=== PATIENT | female | born 1955 | race Caucasian/White ===

== ENCOUNTER 2017-02-28 19:33 | Emergency (ER) | payer OTHER ==
[~2017-02-28] VITALS: Ht 172.7 cm; Wt 62.1 kg
[~2017-02-28 19:33] MED LIST changes: -ACET-1256 PO; -ALPR-411 PO; -AMT10 PO; -CLIN300C2 PO; -HYDR200T5 PO; -OMEP40CA41 PO; -PREG1CAP28 PO
[2017-02-28 19:35] VITALS: TEMP 37; Ht 172.7 cm; Wt 62.1 kg
[2017-02-28] MEDS ORDERED: ADENOSINE IV SOLN 3 MG/ML 2 ML VIAL ONE (19:49)
--- NOTE | 2017-02-28 19:52 | EMERGENCY ROOM VISIT NOTE ---
History Report prepared by Danyelle: Alexia Arriola Under the Supervision of: Dr. Ted Colunga M.D. First contact with patient: 19:41 Chief Complaint: TACHYCARDIA Stated Complaint: SVT History of Present Illness The patient is a 62 year old female who presents to the Emergency Room with complaints of persistent tachycardia starting 40 minutes ago. She drove herself to the ED. The patient was at a rally and had pain between her shoulder blades all afternoon. She reports being unable to get comfortable. She had SOB. She denies inhaling any chemicals while she was cleaning earlier today. She has a history of SVT and was last in the hospital for SVT 1 year ago. She states that adenosine usually works to stop her SVT. She is not on any medications for her SVT. She has never been cardioverted or shocked before. She denies any other heart or aorta problems. She is currently a smoker. Source of History: patient Onset: 40 minutes ago Position: other (cardiac) Quality: other (tachycardia) Timing: other (persistent) Associated Symptoms: + SOB Note: Pt reports pain between her shoulder blades. Review of Systems See HPI for pertinent positives & negatives. A total of 10 systems reviewed and were otherwise negative. Past Medical & Surgical Medical Problems: (1) Abdominal pain (2) C. difficile colitis (3) Diarrhea (4) Hematochezia (5) Overdose of analgesic (6) SVT (supraventricular tachycardia) Family History FHx: heart disease Hypertension Social History Smoking Status: Current Every Day Smoker Alcohol Use: occasionally Drug Use: none Marital Status: Housing Status: lives with family Occupation Status: employed Current/Historical Medications Scheduled Hydroxychloroquine Sulfate (Plaquenil), 400 MG PO HS Omeprazole (Prilosec), 40 MG PO DAILY Pregabalin (Lyrica), 75 MG PO HS Scheduled PRN Alprazolam (Alprazolam), 0.5 MG PO Q6H PRN for Anxiety Amitriptyline HCl (Amitriptyline HCl), 10 MG PO HS PRN for PRN Allergies Coded Allergies: Penicillins (Verified Allergy, Intermediate, HIVES (AMOXICILLIN), 02/28/17) 08/23/11. PATIENT STATES SHE CAN TAKE AUGMENTIN. DJB. Physical Exam Vital Signs Date Time Temp Pulse Resp B/P Pulse Ox O2 Delivery O2 Flow Rate FiO2 02/28/17 21:06 94 20 120/70 97 02/28/17 20:55 94 20 120/70 97 Room Air 02/28/17 20:00 99 Room Air 02/28/17 20:00 99 18 115/84 98 Room Air 02/28/17 19:45 136 02/28/17 19:44 194 02/28/17 19:35 37.0 207 20 118/84 98 Room Air Physical Exam GENERAL: Patient is very anxious appearing and in moderate distress. HEENT: No acute trauma, normocephalic atraumatic, mucous membranes moist, no nasal congestion, no scleral icterus. NECK: No stridor, no adenopathy, no meningismus, trachea is midline. LUNGS: No dyspnea. Clear to auscultation and equal bilaterally. No wheeze, no rhonchi. HEART: Tachycardic rate and regular rhythm. No murmurs, rubs, gallops appreciated. ABDOMEN: Soft, nontender, bowel sounds positive, no masses appreciated, no peritonitis. BACK: No midline tenderness, no CVA tenderness EXTREMITIES: Normal motion all extremities, no cyanosis, no edema. NEUROLOGIC: Alert and oriented, no acute motor or sensory deficits, no focal weakness, cranial nerves grossly intact. SKIN: No rash, no jaundice, no diaphoresis. Medical Decision & Procedures ER Provider Diagnostic Interpretation: X ray results are stated below per my interpretation and the radiologist's interpretation. CHEST ONE VIEW PORTABLE CLINICAL HISTORY: Chest pain. COMPARISON STUDY: Chest radiograph and chest CT December 12, 2015. FINDINGS: Lung volumes are normal. There is no pneumothorax or pleural effusion. Pulmonary vascularity is normal. Cardiac size is normal. There is no evidence of pulmonary edema. No consolidation is identified. IMPRESSION: No acute cardiopulmonary findings. Electronically signed by: Drake Justin M.D. 02/28/2017 8:26 PM Dictated Date/Time: 02/28/2017 8:25 PM Laboratory Results 02/28/17 19:45 Red Blood Count 4.80, Mean Corpuscular Volume 94.2, Mean Corpuscular Hemoglobin 32.7, Mean Corpuscular Hemoglobin Concent 34.7, Mean Platelet Volume 8.9, Neutrophils (%) (Auto) 43.1, Lymphocytes (%) (Auto) 49.5, Monocytes (%) (Auto) 5.7, Eosinophils (%) (Auto) 1.1, Basophils (%) (Auto) 0.3, Neutrophils # (Auto) 5.88, Lymphocytes # (Auto) 6.74, Monocytes # (Auto) 0.77, Eosinophils # (Auto) 0.15, Basophils # (Auto) 0.04 02/28/17 19:45 Test 02/28/17 19:45 White Blood Count 13.62 K/uL (4.8-10.8) Red Blood Count 4.80 M/uL (4.2-5.4) Hemoglobin 15.7 g/dL (12.0-16.0) Hematocrit 45.2 % (37-47) Mean Corpuscular Volume 94.2 fL (80-100) Mean Corpuscular Hemoglobin 32.7 pg (25-34) Mean Corpuscular Hemoglobin Concent 34.7 g/dl (32-36) Platelet Count 319 K/uL (130-400) Mean Platelet Volume 8.9 fL (7.4-10.4) Neutrophils (%) (Auto) 43.1 % Lymphocytes (%) (Auto) 49.5 % Monocytes (%) (Auto) 5.7 % Eosinophils (%) (Auto) 1.1 % Basophils (%) (Auto) 0.3 % Neutrophils # (Auto) 5.88 K/uL (1.4-6.5) Lymphocytes # (Auto) 6.74 K/uL (1.2-3.4) Monocytes # (Auto) 0.77 K/uL (0.11-0.59) Eosinophils # (Auto) 0.15 K/uL (0-0.5) Basophils # (Auto) 0.04 K/uL (0-0.2) RDW Standard Deviation 44.4 fL (36.4-46.3) RDW Coefficient of Variation 12.8 % (11.5-14.5) Immature Granulocyte % (Auto) 0.3 % Immature Granulocyte # (Auto) 0.04 K/uL (0.00-0.02) Smudge Cells PRESENT Blood Smear Review Anion Gap 10.0 mmol/L (3-11) Est Creatinine Clear Calc Drug Dose 63.8 ml/min Estimated GFR () 78.4 Estimated GFR (Non- 67.7 BUN/Creatinine Ratio 19.8 (10-20) Calcium Level 9.3 mg/dl (8.5-10.1) Magnesium Level 2.1 mg/dl (1.8-2.4) Troponin I < 0.015 ng/ml (0-0.045) Thyroid Stimulating Hormone (TSH) 0.525 uIu/ml (0.300-4.500) Laboratory results as reviewed by me. Medications Administered Medications (Trade) Dose Ordered Sig/Milo Route Start Time Stop Time Status Last Admin Dose Admin Adenosine (Adenosine IV) 18 mg STK-MED ONCE .ROUTE 02/28/17 19:49 02/28/17 19:50 DC 02/28/17 19:49 6 MG Lorazepam (Ativan Tab) 0.5 mg STK-MED ONCE .ROUTE 02/28/17 21:05 02/28/17 21:06 DC 02/28/17 21:03 0.5 MG ECG Indication: tachycardia Rate (beats per minute): 189 Rhythm: SVT Findings: ST depression (consistent with rate), no ectopy, other (QTC 411) ED Course 1940: The patient was evaluated in room A3. A complete history and physical exam was performed. 1948: Adenosine 6 mg IV. 2017: I reevaluated the patient. She feels much better and would like to go home. I discussed results and discharge instructions. I advised she follow up with her PCP to see if she should be placed on medications. She verbalized understanding and agreement. The patient is ready for discharge. Medical Decision Differential: NSR, SVT, PACs, PVCs, Cardiac Dysrhythmia, Endocrine Dysfunction, Eletrolyte/Metabolic Abnormality, Pulmonary Embolism, Infectious, GI, amonst other pathologies entertained. 62 yr old female arrives with complaint of palpitations. Ongoing for some time though acutely worse resulting in coming to ED. HR 190s-200s and EKG consistent with SVT which she has had several times before. Previous on meds for this though not taking anything currently. Patient vastly improved with adenosine. Admits this made her quite nervous and thus sent home with dose ativan (patient drove). Labs oK, CXR clear and patient feeling well. Denies drug/etoh use. Denies other concerns. Aware RTED at any time if worsening or other concerns. Impression Primary Impression: SVT (supraventricular tachycardia) Scribe Attestation The scribe's documentation has been prepared under my direction and personally reviewed by me in its entirety. I confirm that the note above accurately reflects all work, treatment, procedures, and medical decision making performed by me. Departure Information Dispostion Home / Self-Care Referrals Escobar Viera Jr,D.O. (PCP) Patient Instructions My [facility], Understanding Supraventricular Tachycardia SVT
[2017-02-28 20:06] LABS: HEMATOCRIT 45.2 % (37-47); MEAN CELL VOLUME 94.2 fL (80-100); MEAN CORPUSCULAR HEMOGLOBIN 32.7 pg (25-34); MEAN CORPUSCULAR HGB CONC 34.7 g/dl (32-36); MEAN PLATELET VOLUME 8.9 fL (7.4-10.4); PLATELET COUNT 319 K/uL (130-400); WHITE BLOOD COUNT 13.62 K/uL (4.8-10.8)
[2017-02-28 20:24] LABS: BLOOD UREA NITROGEN 18 mg/dl (7-18); BUN/CREATININE RATIO 19.8 (10-20); CALCIUM 9.3 mg/dl (8.5-10.1); CARBON DIOXIDE 23 mmol/L (21-32); CHLORIDE 110 mmol/L (98-107); CREATININE 0.92 mg/dl (0.60-1.20); GLUCOSE 134 mg/dl (70-99); MAGNESIUM 2.1 mg/dl (1.8-2.4); POTASSIUM 3.7 mmol/L (3.5-5.1); SODIUM 143 mmol/L (136-145)
--- NOTE | 2017-02-28 20:28 | DIAGNOSTIC IMAGING REPORT ---
CHEST ONE VIEW PORTABLE CLINICAL HISTORY: Chest pain. COMPARISON STUDY: Chest radiograph and chest CT December 12, 2015. FINDINGS: Lung volumes are normal. There is no pneumothorax or pleural effusion. Pulmonary vascularity is normal. Cardiac size is normal. There is no evidence of pulmonary edema. No consolidation is identified. IMPRESSION: No acute cardiopulmonary findings. Electronically signed by: Drake Justin M.D. 02/28/2017 8:26 PM Dictated Date/Time: 02/28/2017 8:25 PM
[2017-02-28 20:34] LABS: THYROID STIMULATING HORMONE 0.525 uIu/ml (0.300-4.500)
[2017-02-28] MEDS ORDERED: LORAZEPAM 0.5 MG TAB ONE (21:05)
[2017-02-28 21:06] VITALS: BP 120/70; PULSE 94; O2SAT 97
[2017-02-28] MEDS ORDERED: EMPTY 8 DRAM VIAL ONE (21:06)
[2017-02-28 21:46] LABS: BASO % 0.3 %; BASO ABS # 0.04 K/uL (0-0.2); COMPLETE YES; EOS % 1.1 %; IG% 0.3 %; LYMPH % 49.5 %; LYMPH ABS # 6.74 K/uL (1.2-3.4); MONO % 5.7 %; NEUT % 43.1 %
[2017-02-28 22:54] LABS: SMUDGE CELLS PRESENT
[2017-04-04] MEDS ORDERED: HYDR200T5 PO (20:51)
[2017-04-04] MEDS ORDERED: ALPR-411 PO (20:55)
[2017-04-04] MEDS ORDERED: OMEP40CA41 PO (20:55)
[2017-04-04] MEDS ORDERED: AMT10 PO (20:55)
[2017-04-04] MEDS ORDERED: PREG1CAP28 PO (20:55)
== END 2017-02-28 21:07 | disposition home or self-care (01) ==
LOC: C.EDB 19:34 → C.EDA 21:07
DX: I47.1 Supraventricular tachycardia (principal); Z82.49 Family history of ischemic heart disease and other diseases of the circulatory system; F17.210 Nicotine dependence, cigarettes, uncomplicated; Z79.899 Other long term (current) drug therapy

== ENCOUNTER → 2017-02-28 | Outpatient (CLI) | payer OTHER ==
[~2017-02-28] MED LIST: ACET-1256 PO; ALPR-411 PO; AMT10 PO; CLIN300C2 PO; HYDR200T5 PO; IBUP-1050 PO; METH10TA4 PO; OMEP40CA41 PO; PREG1CAP28 PO; RANI150T3 PO
== END | disposition home or self-care (01) ==
LOC: C.LABSPEC 20:03
DX: D72.820 Lymphocytosis (symptomatic) (principal)

== ENCOUNTER → 2017-03-02 | Outpatient (CLI) | payer OTHER ==
[~2017-03-02] MED LIST changes: +ACET-1256 PO; +ALPR-411 PO; +AMT10 PO; +CLIN300C2 PO; +HYDR200T5 PO; -METH10TA4 PO; +OMEP40CA41 PO; +PREG1CAP28 PO; -RANI150T3 PO
[2017-03-02 14:21] LABS: FERRITIN 552.7 ng/ml (8.0-388.0); MAGNESIUM 2.4 mg/dl (1.8-2.4)
== END | disposition home or self-care (01) ==
LOC: C.LAB 11:55
DX: R53.83 Other fatigue (principal)

== ENCOUNTER 2017-04-04 21:05 | Emergency (ER) | payer OTHER ==
[~2017-04-04] VITALS: Ht 172.7 cm; Wt 60.7 kg
[~2017-04-04 21:05] MED LIST changes: -ACET-1256 PO; -CLIN300C2 PO; -IBUP-1050 PO
[2017-04-04 21:07] VITALS: TEMP 36.7; Ht 172.7 cm; Wt 60.7 kg
[2017-04-04] MEDS ORDERED: CLIN300C2 PO (21:23)
[2017-04-04] MEDS ORDERED: CLINDAMYCIN 150MG HOME PACK PO ONE (21:30)
[2017-04-04] MEDS ORDERED: OXYCODONE IR HOME PACK PO ONE (21:30)
[2017-04-04 21:34] VITALS: BP 113/71; PULSE 79; O2SAT 96
[2017-04-04] MEDS ORDERED: IBUP-1050 PO (21:35)
[2017-04-04] MEDS ORDERED: ACET-1256 PO (21:35)
--- NOTE | 2017-04-05 00:02 | EMERGENCY ROOM VISIT NOTE ---
ED Visit Note First contact with patient: 21:11 CHIEF COMPLAINT: Toothache HISTORY OF PRESENT ILLNESS: This 62-year-old female patient presented to the emergency department with a progressive toothache for past 2-3 days The patient believes it is coming from a right lower molar. The pain is now steady and severe and radiates to the face. The patient does not have a dentist appointment set up because her symptoms started over the weekend. They rate their pain a 8/10 and the ibuprofen and Tylenol they have been taking has not relieved the pain. Denies facial swelling or fever. The patient denies any discharge from the mouth. REVIEW OF SYSTEMS: A 6 system review of systems was completed with positives and pertinent negatives listed in the HPI. ALLERGIES: Penicillin MEDICATIONS: See EMR PMH: See EMR SOCIAL HISTORY: Lives locally PHYSICAL EXAM: Vitals are noted on the nurse's note and reviewed by myself. Vital signs stable. GENERAL: White female, in no acute distress, nondiaphoretic, well-developed well -nourished. Mouth: The right second molar lower tooth is very carious and the gum is swollen and tender around it, without any discharge or signs of an abscess. The remainder of the pharynx and tonsils are without erythema, edema, or exudate. The airway is patent. There is no facial swelling, cervical or submandibular lymphadenopathy. The patient appears uncomfortable and in pain. The patient has overall poor dental hygiene. EARS: External auditory canals clear, tympanic membranes pearly guallpa without erythema or effusion bilaterally. HEART: Regular rate and rhythm without murmur gallop or rub LUNG: Clear to auscultation bilateral ED COURSE: Physical exam and history were performed. Nursing notes and EMR were reviewed. The patient appears to have dental pain for the past few days. She does not have obvious abscess or impending airway compromise. She will be started on clindamycin. The patient will be given a home pack of oxycodone. She is to contact a dentist as soon as possible for definitive care. She was otherwise invited back to the ER with any new, worsening, or concerning symptoms. Problem List Medical Problems: (1) Abdominal pain Status: Resolved (2) C. difficile colitis Status: Resolved (3) Diarrhea Status: Resolved (4) Hematochezia Status: Resolved (5) Overdose of analgesic Status: Resolved (6) SVT (supraventricular tachycardia) Status: Resolved Current/Historical Medications Scheduled Clindamycin Hcl (Cleocin), 300 MG PO QID Hydroxychloroquine Sulfate (Plaquenil), 400 MG PO HS Omeprazole (Prilosec), 40 MG PO DAILY Pregabalin (Lyrica), 75 MG PO HS Scheduled PRN Acetaminophen (Tylenol), 1,000 MG PO TID PRN for Pain Alprazolam (Alprazolam), 0.5 MG PO Q6H PRN for Anxiety Amitriptyline HCl (Amitriptyline HCl), 10 MG PO HS PRN for PRN Ibuprofen (Advil), 800 MG PO TID PRN for Pain Allergies Coded Allergies: Penicillins (Verified Allergy, Intermediate, HIVES (AMOXICILLIN), 02/28/17) 08/23/11. PATIENT STATES SHE CAN TAKE AUGMENTIN. DJB. Vital Signs Date Time Temp Pulse Resp B/P Pulse Ox O2 Delivery O2 Flow Rate FiO2 04/04/17 21:34 79 16 113/71 96 04/04/17 21:07 36.7 79 16 113/71 96 Room Air Medications Administered Medications (Trade) Dose Ordered Sig/Milo Route Start Time Stop Time Status Last Admin Dose Admin Clindamycin HCl (Cleocin 150MG Home Pack) 1 homepack UD ONCE PO 04/04/17 21:30 04/04/17 21:31 DC 04/04/17 21:33 1 HOMEPACK Oxycodone HCl (Roxicodone Immediate Rel 5MG Home Pack) 1 homepack UD ONCE PO 04/04/17 21:30 04/04/17 21:31 DC 04/04/17 21:33 1 HOMEPACK Departure Information Impression Primary Impression: Pain, dental Dispostion Home / Self-Care Condition GOOD Prescriptions Clindamycin Hcl (CLEOCIN) 300 Mg Cap 300 MG PO QID for 7 Days, #28 CAP Prov: Rocky Lott PA-C 04/04/17 Forms HOME CARE DOCUMENTATION FORM, IMPORTANT VISIT INFORMATION Patient Instructions My [facility] Additional Instructions You were seen and evaluated today on an emergency basis only. This is not a substitute for, or an effort to provide, complete comprehensive medical care. It is not possible to recognize and treat all injuries or illnesses in a single emergency department visit. For this reason it is recommended that you followup with a dentist as soon as possible for definitive care. For baseline pain relief you may alternate ibuprofen and acetaminophen every 4 hours for pain control. Take 600 mg ibuprofen (Advil) and then 4 hours later take 1000 mg acetaminophen (Tylenol). Do not take more than 3000 mg acetaminophen in a single day. Oxycodone (OxyIR) 5mg (homepack): Take ONE pill every SIX hours for breakthrough pain. Avoid alcohol, operating machinery or dangerous equipment, working on ladders or roofs, DRIVING, or situations where being under the influence may be dangerous. It is recommended to use an [id number] stool softener such as Colace, 100mg twice daily while taking this medication to avoid constipation. Clindamycin 4 times a day for 7 days. Consider eating yogurt or taking a probiotic to help prevent C. difficile infection. You are welcome to return to the emergency department anytime with new, worsening, or concerning symptoms.
== END 2017-04-04 21:34 | disposition home or self-care (01) ==
LOC: C.EDB 21:06 → C.EDD 21:34
DX: K08.89 Other specified disorders of teeth and supporting structures (principal); Z79.899 Other long term (current) drug therapy

== ENCOUNTER → 2018-02-20 | Outpatient (CLI) | payer OTHER ==
[~2018-02-20] MED LIST changes: +ACET-1256 PO; +IBUP-1050 PO
[2018-02-20 14:37] LABS: BASO % 0.2 %; BASO ABS # 0.02 K/uL (0-0.2); EOS % 1.3 %; EOS ABS # 0.11 K/uL (0-0.5); HEMATOCRIT 39.1 % (37-47); HEMOGLOBIN 13.5 g/dL (12.0-16.0); IG# 0.02 K/uL (0.00-0.02); LYMPH % 45.7 %; LYMPH ABS # 3.89 K/uL (1.2-3.4); MEAN CELL VOLUME 93.3 fL (80-100); MEAN CORPUSCULAR HEMOGLOBIN 32.2 pg (25-34); MEAN CORPUSCULAR HGB CONC 34.5 g/dl (32-36); MEAN PLATELET VOLUME 8.9 fL (7.4-10.4); MONO % 6.1 %; MONO ABS # 0.52 K/uL (0.11-0.59); NEUT % 46.5 %; NEUT ABS # 3.95 K/uL (1.4-6.5); PLATELET COUNT 247 K/uL (130-400); RED CELL DISTRIBUTION WIDTH SD 44.8 fL (36.4-46.3); WHITE BLOOD COUNT 8.51 K/uL (4.8-10.8)
[2018-02-20 15:03] LABS: ALT/SGPT 18 U/L (12-78); AST/SGOT 21 U/L (15-37); BLOOD UREA NITROGEN 14 mg/dl (7-18); CALCIUM 9.1 mg/dl (8.5-10.1); CARBON DIOXIDE 31 mmol/L (21-32); CREATININE 0.77 mg/dl (0.60-1.20); GLUCOSE 77 mg/dl (70-99); POTASSIUM 3.6 mmol/L (3.5-5.1); SODIUM 137 mmol/L (136-145)
[2018-02-20 15:06] LABS: ALKALINE PHOSPHATASE 64 U/L (45-117); TOTAL PROTEIN 8.1 gm/dl (6.4-8.2)
[2018-02-24 13:38] LABS: HEPATITIS C RNA TMA QUAL Not detected
== END | disposition home or self-care (01) ==
LOC: C.LAB 13:16
DX: M19.90 Unspecified osteoarthritis, unspecified site (principal); B19.20 Unspecified viral hepatitis C without hepatic coma

== ENCOUNTER 2021-06-28 14:12 | Inpatient (IN) ==
[2021-06-28] MEDS ORDERED: SODIUM CHLORIDE 0.9% 1000ML 2,000 ML IV ONE (14:33)
--- NOTE | 2021-06-28 14:48 | Emergency Department Note ---
Impression & Plan Altered mental status, Pneumonitis, Hypoxia, Hypercarbia ED Provider Note NAME: ANGÉLICA NEELY AGE: 66 SEX: F : 1955 ARRIVES VIA: Walk-In INFORMANT: Patient ED PROVIDER(S): Jeff Goodman DO CHIEF COMPLAINT: Confusion HPI: Patient is a 66-year-old female who presents ER brought in by daughter for confusion. Daughter notes that the last time she saw her was about 6 in the morning. Both of them eventually went back to bed throughout the day and she woke the daughter up just prior to coming in and she was confused shaking and not making sense. Patient notes that she does have some lower abdominal pain. Denies any change in vision. Notes that she feels very tired. History is fairly limited as she keeps moaning. Denies any dysuria, urgency, or frequency. No chest pain or shortness of breath. No other exacerbating or remitting factors. She denies any drugs or alcohol. ROS: History is limited secondary to mentation PAST MEDICAL HISTORY:See Below PAST SURGICAL HISTORY:See Below FAMILY HISTORY:See Below SOCIAL HISTORY:See Below HOME MEDICATIONS:See Below ALLERGIES:See Below VITALS:See Below PHYSICAL EXAMINATION: GENERAL: Sitting up in bed, alert, but falls asleep very quickly, disheveled intermittently moaning in crying EYE EXAM: normal conjunctiva. PERRL and EOM's intact. OROPHARYNX: no exudate, no erythema, lips, buccal mucosa, and tongue normal and mucous membranes are moist NECK: supple, no nuchal rigidity, no adenopathy, non-tender LUNGS: Clear to auscultation. Normal chest wall mechanics HEART: no murmurs, S1 normal and S2 normal ABDOMEN: abdomen soft, non-tender, normo-active bowel sounds, no masses, no rebound or guarding. UPPER EXTREMITIES: upper extremities are grossly normal. LOWER EXTREMITIES: No pitting edema. NEURO EXAM: Awake and alert but falls asleep extremely quickly. Oriented to person place but not year., cranial nerves II-XII intact, normal speech when she wakes up, no weakness of arms, no weakness of legs. No drift. Gross sensation intact. Unable to perform [id number] as she falls asleep too quickly MEDICAL DECISION MAKING: Patient is a 66-year-old female who presents the ER who awakens to painful stimuli and verbal stimuli and falls asleep very quickly. Intermittently slurring words appears to be visibly intoxicated. IV was established blood work is obtained. Labs show no significant leukocytosis or anemia. VBG with a pH of 7.3 and a CO2 of 63. BMP along with LFTs bilirubin was unremarkable. Lipase was normal. UA was contaminated with greater than 30 epithelial cells. Tox positive for benzodiazepines. Alcohol was negative. CT of the head was negative. CT of the abdomen pelvis shows bilateral infiltrates in the lower lungs. She was given IV Rocephin and azithromycin. She is given IV fluids. Lactic acid was elevated. She was updated bedside. Her mentation did improve and she was able to walk in the room but is still off. She did become slightly hypoxic at 88%. She was placed on nasal cannula. She was fairly agitated and pulling the nasal cannula off. Will not tolerate BiPAP although considered with a pH of 7.3 and a CO2 of 62. As her mentation has improved currently I do favor that these will improve as well. Last known well is somewhere around 6 in the morning. Patient again has no focal deficit. Nothing that makes this consistent with a stroke. She is not a TPA candidate at this time. Will defer to the hospitalist for further evaluation. Triage Nursing notes reviewed. Limited review of prior medical records performed Vital Signs: reviewed and remarkable for HTN and tachy Differential diagnosis: Differential diagnoses includes but is not limited to toxic, metabolic, infectious, traumatic, cardiac, neurologic, hematologic, psychiatric and inflammatory etiologies. ER treatment provided: See below Diagnostics interpreted by me: ECG: Sinus rhythm rate 126 Normal axis Poor baseline T wave inversion in the inferior leads and nonspecific ST wave changes QTC 428 Cardiac Monitoring: An order was placed for continuous cardiac monitoring. The monitor shows a rate of 122 with sinus rhythm. Laboratory studies: As stated above and show below. Imaging studies: CT of the head was negative Portable AP upright 1 view chest shows bilateral infiltrates CT abdomen pelvis shows infiltrates in bilateral lower lobes Consultation(s): Discussed with David Montgomery for further evaluation Procedures: none Critical Care: I have personally spent 32 minutes of critical care time in the direct management of this patient. This includes bedside care, interpretation of diagnostic studies, and testing, discussion with consultants, patient, and family members, and other required patient management activities. This 32 minutes is in excess of all separately billable procedures. Past Med/Surg History Medical History (Updated 06/28/21 @ 17:59 by GLADIS Calvo) Anxiety and depression Degenerative disc disease Hx of supraventricular tachycardia BY DR[facility] BANERJEE AT [facility] Migraine Osteoarthritis Spinal stenosis Surgical History Fusion of spine LUMBAR H/O cardiac radiofrequency ablation H/O vitrectomy LEFT H/O: hysterectomy 2009 History of bilateral tubal ligation History of colonoscopy History of esophagogastroduodenoscopy (EGD) History of tooth extraction Family History Grandfather (Paternal) Cancer Uncle Cancer Grandfather (Paternal) Colorectal cancer Other Hypertension No significant family history Social History Smoking Status: Former smoker Tobacco Type: Cigarettes Cigarettes Per Day: 10; Second Hand Exposure: No; Hx Alcohol Use: No Hx Substance Use: No Preferred Language: Irish [employer]er Required: No Beliefs That Will Affect Care: None marital status: / Current Living Situation: Family current occupational status: retired and disabled Feels Safe at Home: Yes Assistive Devices: Denture - Upper, Denture - Lower and Glasses Allergies Allergies Allergy/AdvReac Type Severity Reaction Status Date / Time Penicillins Allergy Intermediate Hives Verified 06/28/21 15:39 Home Meds Home Medications Medication Instructions Recorded Confirmed alprazolam 0.5 mg tablet (Xanax) 0.5 mg PO TID PRN 11/14/19 06/28/21 acetaminophen 500 mg tablet 1,000 mg PO Q6H PRN 04/21/20 06/28/21 (Tylenol Extra Strength) ibuprofen 200 mg tablet 400 - 600 mg PO Q8H PRN 04/21/20 06/28/21 aluminum-mag hydroxide-simethicone 0 ml PO QID PRN 06/28/21 06/28/21 200 mg-200 mg-20 mg/5 mL oral susp bismuth subsalicylate 262 mg/15 mL 0 mg PO QID PRN 06/28/21 06/28/21 oral suspension (Pepto-Bismol) Results & Data (ED) Vital Signs Vital Signs - 24 hr 06/28/21 14:16 06/28/21 14:26 06/28/21 14:30 Pulse Rate 132 H 126 H Pulse Rate from SpO2 Sensor 132 H Pulse Rhythm Regular Respiratory Rate 16 24 16 Respiratory Effort / Characteristics Non-Labored Respiratory Depth Normal Blood Pressure 158/78 H 126/81 Blood Pressure Mean 104 96 Pulse Oximetry 93 89 L 93 Oxygen Delivery Method Room Air Room Air Room Air Oxygen Flow Rate Sepsis Recent Fever Within 48 Hours No Sepsis New/Unexplained Change in Mental Status No Sepsis Action Taken by Nursing No Action Required 06/28/21 15:00 06/28/21 15:30 06/28/21 16:00 Pulse Rate 121 H 126 H Pulse Rate from SpO2 Sensor 126 H 124 H Pulse Rhythm Respiratory Rate 24 26 H Respiratory Effort / Characteristics Respiratory Depth Blood Pressure 147/81 H 148/84 H 159/96 H Blood Pressure Mean 103 105 117 Pulse Oximetry 94 98 91 Oxygen Delivery Method Nasal Cannula Oxygen Flow Rate 2 Sepsis Recent Fever Within 48 Hours Sepsis New/Unexplained Change in Mental Status Sepsis Action Taken by Nursing Laboratory Data Result diagrams: 06/28/21 14:45 06/28/21 14:45 Lab Results 06/28/21 06/28/21 06/28/21 Range/Units 14:45 14:45 14:45 WBC 9.42 (4.8-10.8) K/uL RBC 4.59 (4.2-5.4) M/uL Hgb 14.3 (12.0-16.0) g/dL POC Hgb (12.0-16.0) g/dl Hct 42.4 (37-47) % POC Hct (37-47) % MCV 92.4 (80-100) fL MCH 31.2 (25-34) pg MCHC 33.7 (32-36) g/dL RDW Std Deviation 43.4 (36.4-46.3) fL RDW Coeff of Hernan 12.9 (11.5-14.5) % Plt Count 226 (130-400) K/uL MPV 8.5 (7.4-10.4) fL Immature Gran % (Auto) 0.3 % Neut % (Auto) 73.2 % Lymph % (Auto) 22.1 % [place] % (Auto) 3.5 % Eos % (Auto) 0.8 % Baso % (Auto) 0.1 % Neut # (Auto) 6.89 H (1.4-6.5) K/uL Lymph # (Auto) 2.08 (1.2-3.4) K/uL [place] # (Auto) 0.33 (0.11-0.59) K/uL Eos # (Auto) 0.08 (0-0.5) K/uL Baso # (Auto) 0.01 (0-0.2) K/uL Immature Gran # (Auto) 0.03 H (0.00-0.02) K/uL VBG pH (7.36-7.41) VBG pCO2 (38-50) mmHg VBG pO2 mmHg VBG HCO3 mmol/L VBG O2 Saturation % VBG Base Excess mEq/L Barometric Pressure mm/Hg POC Sodium (135-144) mmol/L Sodium 140 (136-145) mmol/L POC Potassium (3.3-5.0) mmol/L Potassium 4.0 (3.5-5.1) mmol/L POC Chloride (101-112) mmol/L Chloride 104 (98-107) mmol/L Carbon Dioxide 28 (21-32) mmol/L POC Total CO2 (24-31) mmol/L Anion Gap 8.0 (3-11) POC Anion Gap (16-25) mmol/L POC BUN (7-18) mg/dl BUN 14 (7-18) mg/dl Creatinine 0.83 (0.6-1.2) mg/dl POC Creatinine (0.6-1.3) mg/dl Est Cr Clr Drug Dosing Not Reportable Est GFR ( Amer) 86.4 ml/min Est GFR (Non-Af Amer) 74.5 ml/min BUN/Creatinine Ratio 17.1 (10-20) Glucose 118 H (70-99) mg/dl POC Glucose (other) (70-99) mg/dl Lactate (0.4-2.0) mmol/L Calcium 9.1 (8.5-10.1) mg/dl POC Ioniz Calcium Tara (1.12-1.32) mmol/l Total Bilirubin 0.4 (0.2-1) mg/dl AST 58 H (15-37) U/L ALT 61 (12-78) U/L Alkaline Phosphatase 72 (45-117) U/L C-Reactive Protein (0-0.29) mg/dl Total Protein 8.1 (6.4-8.2) gm/dl Albumin 4.0 (3.4-5.0) gm/dl Globulin 4.1 H (2.5-4.0) gm/dl Albumin/Globulin Ratio 1.0 (0.9-2) Lipase 313 (73-393) U/L Specimen Hemolysis Urine Color Urine Appearance (Clear) Urine pH (4.5-7.5) Ur Specific [place] (1.000-1.030) Urine Protein (Negative) Urine Glucose (UA) (Negative) Urine Ketones (Negative) Urine Blood (Negative) Urine Nitrite (Negative) Urine Bilirubin (Negative) Urine Urobilinogen (Negative) Ur Leukocyte Esterase (Negative) Urine WBC (Auto) (0-5) /hpf Urine RBC (Auto) (0-4) /hpf U Hyaline Cast (Auto) (0-5) /lpf U Epithel Cells (Auto) (0-5) /lpf Urine Bacteria (Auto) (Negative) Urine Opiates Screen (Neg) Ur Methadone, Qual (Neg) Urine Barbiturates (Neg) Ur Phencyclidine (PCP) (Neg) U Amphetamin/Meth Scrn (Neg) MDMA (Ecstasy) Screen (Neg) U Benzodiazepines Scrn (Neg) Ur Cocaine Metabolite (Neg) U Marijuana (THC) Screen (Neg) Ethyl Alcohol mg/dL < 3.0 (0-3) mg/dl 06/28/21 06/28/21 06/28/21 Range/Units 14:45 14:45 14:45 WBC (4.8-10.8) K/uL RBC (4.2-5.4) M/uL Hgb (12.0-16.0) g/dL POC Hgb (12.0-16.0) g/dl Hct (37-47) % POC Hct (37-47) % MCV (80-100) fL MCH (25-34) pg MCHC (32-36) g/dL RDW Std Deviation (36.4-46.3) fL RDW Coeff of Hernan (11.5-14.5) % Plt Count (130-400) K/uL MPV (7.4-10.4) fL Immature Gran % (Auto) % Neut % (Auto) % Lymph % (Auto) % [place] % (Auto) % Eos % (Auto) % Baso % (Auto) % Neut # (Auto) (1.4-6.5) K/uL Lymph # (Auto) (1.2-3.4) K/uL [place] # (Auto) (0.11-0.59) K/uL Eos # (Auto) (0-0.5) K/uL Baso # (Auto) (0-0.2) K/uL Immature Gran # (Auto) (0.00-0.02) K/uL VBG pH 7.30 L (7.36-7.41) VBG pCO2 63 H (38-50) mmHg VBG pO2 20 mmHg VBG HCO3 31 mmol/L VBG O2 Saturation < 60.0 % VBG Base Excess 2.4 mEq/L Barometric Pressure 729.2 mm/Hg POC Sodium (135-144) mmol/L Sodium (136-145) mmol/L POC Potassium (3.3-5.0) mmol/L Potassium (3.5-5.1) mmol/L POC Chloride (101-112) mmol/L Chloride (98-107) mmol/L Carbon Dioxide (21-32) mmol/L POC Total CO2 (24-31) mmol/L Anion Gap (3-11) POC Anion Gap (16-25) mmol/L POC BUN (7-18) mg/dl BUN (7-18) mg/dl Creatinine (0.6-1.2) mg/dl POC Creatinine (0.6-1.3) mg/dl Est Cr Clr Drug Dosing Est GFR ( Amer) ml/min Est GFR (Non-Af Amer) ml/min BUN/Creatinine Ratio (10-20) Glucose (70-99) mg/dl POC Glucose (other) (70-99) mg/dl Lactate 2.1 H* (0.4-2.0) mmol/L Calcium (8.5-10.1) mg/dl POC Ioniz Calcium Tara (1.12-1.32) mmol/l Total Bilirubin (0.2-1) mg/dl AST (15-37) U/L ALT (12-78) U/L Alkaline Phosphatase (45-117) U/L C-Reactive Protein 0.42 H (0-0.29) mg/dl Total Protein (6.4-8.2) gm/dl Albumin (3.4-5.0) gm/dl Globulin (2.5-4.0) gm/dl Albumin/Globulin Ratio (0.9-2) Lipase (73-393) U/L Specimen Hemolysis Urine Color Urine Appearance (Clear) Urine pH (4.5-7.5) Ur Specific [place] (1.000-1.030) Urine Protein (Negative) Urine Glucose (UA) (Negative) Urine Ketones (Negative) Urine Blood (Negative) Urine Nitrite (Negative) Urine Bilirubin (Negative) Urine Urobilinogen (Negative) Ur Leukocyte Esterase (Negative) Urine WBC (Auto) (0-5) /hpf Urine RBC (Auto) (0-4) /hpf U Hyaline Cast (Auto) (0-5) /lpf U Epithel Cells (Auto) (0-5) /lpf Urine Bacteria (Auto) (Negative) Urine Opiates Screen (Neg) Ur Methadone, Qual (Neg) Urine Barbiturates (Neg) Ur Phencyclidine (PCP) (Neg) U Amphetamin/Meth Scrn (Neg) MDMA (Ecstasy) Screen (Neg) U Benzodiazepines Scrn (Neg) Ur Cocaine Metabolite (Neg) U Marijuana (THC) Screen (Neg) Ethyl Alcohol mg/dL (0-3) mg/dl 06/28/21 06/28/21 06/28/21 Range/Units 14:47 16:03 16:03 WBC (4.8-10.8) K/uL RBC (4.2-5.4) M/uL Hgb (12.0-16.0) g/dL POC Hgb 15.0 (12.0-16.0) g/dl Hct (37-47) % POC Hct 44 (37-47) % MCV (80-100) fL MCH (25-34) pg MCHC (32-36) g/dL RDW Std Deviation (36.4-46.3) fL RDW Coeff of Hernan (11.5-14.5) % Plt Count (130-400) K/uL MPV (7.4-10.4) fL Immature Gran % (Auto) % Neut % (Auto) % Lymph % (Auto) % [place] % (Auto) % Eos % (Auto) % Baso % (Auto) % Neut # (Auto) (1.4-6.5) K/uL Lymph # (Auto) (1.2-3.4) K/uL [place] # (Auto) (0.11-0.59) K/uL Eos # (Auto) (0-0.5) K/uL Baso # (Auto) (0-0.2) K/uL Immature Gran # (Auto) (0.00-0.02) K/uL VBG pH (7.36-7.41) VBG pCO2 (38-50) mmHg VBG pO2 mmHg VBG HCO3 mmol/L VBG O2 Saturation % VBG Base Excess mEq/L Barometric Pressure mm/Hg POC Sodium 141 (135-144) mmol/L Sodium (136-145) mmol/L POC Potassium 3.9 (3.3-5.0) mmol/L Potassium (3.5-5.1) mmol/L POC Chloride 101 (101-112) mmol/L Chloride (98-107) mmol/L Carbon Dioxide (21-32) mmol/L POC Total CO2 25 (24-31) mmol/L Anion Gap (3-11) POC Anion Gap 20.0 (16-25) mmol/L POC BUN 16 (7-18) mg/dl BUN (7-18) mg/dl Creatinine (0.6-1.2) mg/dl POC Creatinine 0.7 (0.6-1.3) mg/dl Est Cr Clr Drug Dosing Est GFR ( Amer) ml/min Est GFR (Non-Af Amer) ml/min BUN/Creatinine Ratio (10-20) Glucose (70-99) mg/dl POC Glucose (other) 112 H (70-99) mg/dl Lactate (0.4-2.0) mmol/L Calcium (8.5-10.1) mg/dl POC Ioniz Calcium Tara 1.13 (1.12-1.32) mmol/l Total Bilirubin (0.2-1) mg/dl AST (15-37) U/L ALT (12-78) U/L Alkaline Phosphatase (45-117) U/L C-Reactive Protein (0-0.29) mg/dl Total Protein (6.4-8.2) gm/dl Albumin (3.4-5.0) gm/dl Globulin (2.5-4.0) gm/dl Albumin/Globulin Ratio (0.9-2) Lipase (73-393) U/L Specimen Hemolysis Urine Color Yellow Urine Appearance Clear (Clear) Urine pH 5.0 (4.5-7.5) Ur Specific [place] 1.033 H (1.000-1.030) Urine Protein Negative (Negative) Urine Glucose (UA) Negative (Negative) Urine Ketones Negative (Negative) Urine Blood Negative (Negative) Urine Nitrite Negative (Negative) Urine Bilirubin Negative (Negative) Urine Urobilinogen Negative (Negative) Ur Leukocyte Esterase 2+ H (Negative) Urine WBC (Auto) 10-30 H (0-5) /hpf Urine RBC (Auto) 0-4 (0-4) /hpf U Hyaline Cast (Auto) 1-5 (0-5) /lpf U Epithel Cells (Auto) >30 H (0-5) /lpf Urine Bacteria (Auto) Negative (Negative) Urine Opiates Screen Neg (Neg) Ur Methadone, Qual Neg (Neg) Urine Barbiturates Neg (Neg) Ur Phencyclidine (PCP) Neg (Neg) U Amphetamin/Meth Scrn Neg (Neg) MDMA (Ecstasy) Screen Neg (Neg) U Benzodiazepines Scrn Pos H (Neg) Ur Cocaine Metabolite Neg (Neg) U Marijuana (THC) Screen Neg (Neg) Ethyl Alcohol mg/dL (0-3) mg/dl 06/28/21 Range/Units 16:35 WBC (4.8-10.8) K/uL RBC (4.2-5.4) M/uL Hgb (12.0-16.0) g/dL POC Hgb (12.0-16.0) g/dl Hct (37-47) % POC Hct (37-47) % MCV (80-100) fL MCH (25-34) pg MCHC (32-36) g/dL RDW Std Deviation (36.4-46.3) fL RDW Coeff of Hernan (11.5-14.5) % Plt Count (130-400) K/uL MPV (7.4-10.4) fL Immature Gran % (Auto) % Neut % (Auto) % Lymph % (Auto) % [place] % (Auto) % Eos % (Auto) % Baso % (Auto) % Neut # (Auto) (1.4-6.5) K/uL Lymph # (Auto) (1.2-3.4) K/uL [place] # (Auto) (0.11-0.59) K/uL Eos # (Auto) (0-0.5) K/uL Baso # (Auto) (0-0.2) K/uL Immature Gran # (Auto) (0.00-0.02) K/uL VBG pH (7.36-7.41) VBG pCO2 (38-50) mmHg VBG pO2 mmHg VBG HCO3 mmol/L VBG O2 Saturation % VBG Base Excess mEq/L Barometric Pressure mm/Hg POC Sodium (135-144) mmol/L Sodium (136-145) mmol/L POC Potassium (3.3-5.0) mmol/L Potassium (3.5-5.1) mmol/L POC Chloride (101-112) mmol/L Chloride (98-107) mmol/L Carbon Dioxide (21-32) mmol/L POC Total CO2 (24-31) mmol/L Anion Gap (3-11) POC Anion Gap (16-25) mmol/L POC BUN (7-18) mg/dl BUN (7-18) mg/dl Creatinine (0.6-1.2) mg/dl POC Creatinine (0.6-1.3) mg/dl Est Cr Clr Drug Dosing Est GFR ( Amer) ml/min Est GFR (Non-Af Amer) ml/min BUN/Creatinine Ratio (10-20) Glucose (70-99) mg/dl POC Glucose (other) (70-99) mg/dl Lactate 1.6 (0.4-2.0) mmol/L Calcium (8.5-10.1) mg/dl POC Ioniz Calcium Tara (1.12-1.32) mmol/l Total Bilirubin (0.2-1) mg/dl AST (15-37) U/L ALT (12-78) U/L Alkaline Phosphatase (45-117) U/L C-Reactive Protein (0-0.29) mg/dl Total Protein (6.4-8.2) gm/dl Albumin (3.4-5.0) gm/dl Globulin (2.5-4.0) gm/dl Albumin/Globulin Ratio (0.9-2) Lipase (73-393) U/L Specimen Hemolysis Urine Color Urine Appearance (Clear) Urine pH (4.5-7.5) Ur Specific [place] (1.000-1.030) Urine Protein (Negative) Urine Glucose (UA) (Negative) Urine Ketones (Negative) Urine Blood (Negative) Urine Nitrite (Negative) Urine Bilirubin (Negative) Urine Urobilinogen (Negative) Ur Leukocyte Esterase (Negative) Urine WBC (Auto) (0-5) /hpf Urine RBC (Auto) (0-4) /hpf U Hyaline Cast (Auto) (0-5) /lpf U Epithel Cells (Auto) (0-5) /lpf Urine Bacteria (Auto) (Negative) Urine Opiates Screen (Neg) Ur Methadone, Qual (Neg) Urine Barbiturates (Neg) Ur Phencyclidine (PCP) (Neg) U Amphetamin/Meth Scrn (Neg) MDMA (Ecstasy) Screen (Neg) U Benzodiazepines Scrn (Neg) Ur Cocaine Metabolite (Neg) U Marijuana (THC) Screen (Neg) Ethyl Alcohol mg/dL (0-3) mg/dl Administered Medications Discontinued Medications Sodium Chloride (Nss 1000ml) 2,000 mls @ 999 mls/hr IV .Q2H1M ONE Stop: 06/28/21 16:33 Last Admin: 06/28/21 14:43 Dose: 999 mls/hr Documented by: [id number] Ioversol (Optiray 320 100ml) 94 ml IV ONCE ONE Stop: 06/28/21 15:46 Last Admin: 06/28/21 15:45 Dose: 94 ml Documented by: [id number] Imaging Data Radiologist's Impression: Abdomen/Pelvis CT 06/28/21 14:32 CT OF THE ABDOMEN AND PELVIS WITH CONTRAST CLINICAL HISTORY: Altered mental status. COMPARISON STUDY: PET/CT January 15, 2020. TECHNIQUE: Following IV administration of 94 mL of Optiray, axial images of the abdomen and pelvis were obtained from the lung bases to the proximal femurs. Images were reviewed in the axial, sagittal, and coronal planes. IV contrast was administered without complication. Automated exposure control was utilized for the study. A dose lowering technique was utilized adhering to the principles of ALARA. CT DOSE: 1219.55 mGy.cm FINDINGS: Visualized portions of the lower chest demonstrate moderate alveolar opacities within the right middle and right lower lobes as well as mild left lung airspace opacities. These are new since chest CT of June 17, 2021. No pneumatosis, free air or portal venous gas is present. There are no hepatic lesions. There is no biliary or pancreatic ductal dilatation. Pancreas divisum is incidentally noted. The spleen, adrenal glands and kidneys are normal. There is no hydronephrosis. There is no evidence for a bowel obstruction. The appendix is normal. No lymphadenopathy or ascites is present. No acute fracture or suspicious lesion is identified within the visualized skeletal structures. IMPRESSION: 1. Bilateral lower lung opacities, greater within the right lung. The findings represent an infectious process. 2. No acute process within the abdomen or pelvis. 3. Normal appendix. No bowel obstruction. No bowel wall thickening. ACT 112: Negative or not required by law. Electronically signed by: Drake Justin M.D. 06/28/2021 4:[address] 06/28/21 14:32 CT SCAN OF THE BRAIN WITHOUT IV CONTRAST CLINICAL HISTORY: Change in mental status. COMPARISON STUDY: MRI of the brain dated 05/11/2012. TECHNIQUE: Unenhanced axial CT scan of the brain is performed from the vertex to the skull base. A dose lowering technique was utilized adhering to the principles of ALARA. FINDINGS: Brain parenchyma: There are age-related involutional changes noting minimal subcortical and periventricular microangiopathic change. There is no hemorrhage, mass effect, or evidence of acute territorial ischemia by CT criteria. Gibson- white matter differentiation is preserved. No extra-axial fluid collection is seen. Ventricles, sulci, cisterns: Prominent secondary to involutional change. Intracranial vasculature: There is mild atherosclerotic calcification of the cavernous carotid arteries. Calvarium: Unremarkable. Sinuses and mastoids: The visualized paranasal sinuses are clear. The mastoid air cells are well pneumatized. Orbits: The bony orbits are grossly intact. IMPRESSION: There is no hemorrhage, mass effect, or evidence of acute territorial ischemia by CT criteria. ACT 112: Negative or not required by law. Electronically signed by: Isidoro Eden M.D. 06/28/2021 3:53 PM Chest X-Ray 06/28/21 15:55 XR chest 1V portable HISTORY: Altered mental status. COMPARISON: Chest 12/19/2020. FINDINGS: No pneumothorax. No pleural effusions. The heart is normal in size. There is diffuse interstitial thickening with hazy airspace opacities within the mid to lower lung zones. Mild emphysema. HEALED LEFT RIB FRACTURES. IMPRESSION: Diffuse interstitial thickening with hazy airspace opacities within the mid to lower lung zones as pronounced on the right. This may represent a viral pneumonia or developing pulmonary edema. ACT 112: Negative or not required by law. Electronically signed by: Corey Smith M.D. 06/28/2021 4:54 PM Discharge Plan Visit Data Chief Complaint: Stroke/CVA Symptoms Stated Complaint: DIFFICULTY SPECKING, POSSIBLE STROKE ED Provider: Jeff Goodman Discharge Problem: Altered mental status, Pneumonitis, Hypoxia, Hypercarbia Forms Stand Alone Forms: [facility] [employer] Prescriptions Prescriptions: No Action alprazolam [Xanax] 0.5 mg tablet 0.5 mg PO TID PRN (Reason: Anxiety) RF: 0 acetaminophen [Tylenol Extra Strength] 500 mg Tablet 1,000 mg PO Q6H PRN (Reason: Pain) RF: 0 ibuprofen 200 mg Tablet 400 - 600 mg PO Q8H PRN (Reason: Pain) RF: 0 bismuth subsalicylate [Pepto-Bismol] 262 mg/15 mL Suspension 0 mg PO QID PRN (Reason: gi-upset) RF: 0 alum-mag hydroxide-simeth [Mylanta] 200-200-20 mg/5 mL Suspension 0 ml PO QID PRN (Reason: gi-upset) RF: 0 Referrals Referrals: Escobar Viera Jr, DO [Primary Care Provider] -
[2021-06-28 14:57] LABS: Basophils # (auto) 0.01 K/uL (0-0.2); Basophils % (auto) 0.1 %; Eosinophils # (auto) 0.08 K/uL (0-0.5); Eosinophils % (auto) 0.8 %; Hematocrit (blood only) 42.4 % (37-47); Hemoglobin 14.3 g/dL (12.0-16.0); Immature Granulocytes # (auto) 0.03 K/uL (0.00-0.02); Immature Granulocytes % (auto) 0.3 %; Lymphocytes # (auto) 2.08 K/uL (1.2-3.4); Lymphocytes % (auto) 22.1 %; Mean Corpuscular Hemoglobin 31.2 pg (25-34); Mean Corpuscular Hgb Conc 33.7 g/dL (32-36); Mean Corpuscular Volume 92.4 fL (80-100); Mean Platelet Volume 8.5 fL (7.4-10.4); Monocytes # (auto) 0.33 K/uL (0.11-0.59); Monocytes % (auto) 3.5 %; Neutrophils # (auto) 6.89 K/uL (1.4-6.5); Neutrophils % (auto) 73.2 %; Platelet Count 226 K/uL (130-400); RDW Coefficient of Variation 12.9 % (11.5-14.5); RDW Standard Deviation 43.4 fL (36.4-46.3); Red Blood Count 4.59 M/uL (4.2-5.4); White Blood Count 9.42 K/uL (4.8-10.8)
[2021-06-28 15:00] LABS: iSTAT Creatinine 0.7 mg/dl (0.6-1.3); iSTAT Ionized Calcium 1.13 mmol/l (1.12-1.32); iSTAT Potassium 3.9 mmol/L (3.3-5.0)
[2021-06-28 15:02] LABS: Base Excess VBG 2.4 mEq/L; HCO3 VBG 31 mmol/L; PCO2 VBG 63 mmHg (38-50); PO2 VBG 20 mmHg
[2021-06-28 15:08] LABS: Oxygen Saturation VBG < 60.0 %
[2021-06-28 15:41] LABS: Alanine Aminotransferase 61 U/L (12-78); Alkaline Phosphatase 72 U/L (45-117); Aspartate Aminotransferase 58 U/L (15-37); BUN Creatinine Ratio 17.1 (10-20); Bilirubin,Total 0.4 mg/dl (0.2-1); Blood Urea Nitrogen 14 mg/dl (7-18); Calcium 9.1 mg/dl (8.5-10.1); Carbon Dioxide 28 mmol/L (21-32); Chloride 104 mmol/L (98-107); Est GFR (African American) 86.4 ml/min; Est GFR (Non-African American) 74.5 ml/min; Globulin 4.1 gm/dl (2.5-4.0); Glucose 118 mg/dl (70-99); Lipase 313 U/L (73-393); Sodium 140 mmol/L (136-145); Total Protein 8.1 gm/dl (6.4-8.2)
[2021-06-28] MEDS ORDERED: OPTIRAY 320 100ml IV ONE (15:45)
--- NOTE | 2021-06-28 15:54 | CT Scan Report ---
CT SCAN OF THE BRAIN WITHOUT IV CONTRAST CLINICAL HISTORY: Change in mental status. COMPARISON STUDY: MRI of the brain dated 05/11/2012. TECHNIQUE: Unenhanced axial CT scan of the brain is performed from the vertex to the skull base. A do se lowering technique was utilized adhering to the principles of ALARA. FINDINGS: Brain parenchyma: There are age-related involutional changes noting minimal subcortical and perivent ricular microangiopathic change. There is no hemorrhage, mass effect, or evidence of acute territoria l ischemia by CT criteria. Gibson-white matter differentiation is preserved. No extra-axial fluid colle ction is seen. Ventricles, sulci, cisterns: Prominent secondary to involutional change. Intracranial vasculature: There is mild atherosclerotic calcification of the cavernous carotid arteri es. Calvarium: Unremarkable. Sinuses and mastoids: The visualized paranasal sinuses are clear. The mastoid air cells are well pneu matized. Orbits: The bony orbits are grossly intact. IMPRESSION: There is no hemorrhage, mass effect, or evidence of acute territorial ischemia by CT iván díaz. ACT 112: Negative or not required by law. Electronically signed by: Isidoro Eden M.D. 06/28/2021 3:53 PM
--- NOTE | 2021-06-28 16:06 | CT Scan Report ---
CT OF THE ABDOMEN AND PELVIS WITH CONTRAST CLINICAL HISTORY: Altered mental status. COMPARISON STUDY: PET/CT January 15, 2020. TECHNIQUE: Following IV administration of 94 mL of Optiray, axial images of the abdomen and pelvis we re obtained from the lung bases to the proximal femurs. Images were reviewed in the axial, sagittal, and coronal planes. IV contrast was administered without complication. Automated exposure control wa s utilized for the study. A dose lowering technique was utilized adhering to the principles of ALARA . CT DOSE: 1219.55 mGy.cm FINDINGS: Visualized portions of the lower chest demonstrate moderate alveolar opacities within the r ight middle and right lower lobes as well as mild left lung airspace opacities. These are new since c [facility] CT of June 17, 2021. No pneumatosis, free air or portal venous gas is present. There are no he patic lesions. There is no biliary or pancreatic ductal dilatation. Pancreas divisum is incidentally noted. The spleen, adrenal glands and kidneys are normal. There is no hydronephrosis. There is no rosio dence for a bowel obstruction. The appendix is normal. No lymphadenopathy or ascites is present. No a cute fracture or suspicious lesion is identified within the visualized skeletal structures. IMPRESSION: 1. Bilateral lower lung opacities, greater within the right lung. The findings represent an infectiou s process. 2. No acute process within the abdomen or pelvis. 3. Normal appendix. No bowel obstruction. No bowel wall thickening. ACT 112: Negative or not required by law. Electronically signed by: Drake Justin M.D. 06/28/2021 4:05 PM
[2021-06-28 16:14] LABS: Appearance Urine Clear (Clear); Bacteria Urine Automated Negative (Negative); Bilirubin Urine Negative (Negative); Blood Urine Negative (Negative); Color Urine Yellow; Epithelial Cell Urine Auto >30 /lpf (0-5); Glucose Urine UA Negative (Negative); Ketones Urine Negative (Negative); Leukocyte Esterase Urine 2+ (Negative); Nitrite Urine Negative (Negative); Protein Urine Negative (Negative); RBC Urine Automated 0-4 /hpf (0-4); Specific Gravity Urine 1.033 (1.000-1.030); Urobilinogen Urine Negative (Negative)
[2021-06-28] MEDS ORDERED: cefTRIAXone SODIUM 1,000 MG/50 ML BAG IV STA (16:36)
[2021-06-28] MEDS ORDERED: AZITHROMYCIN 500 MG in DEXTROSE 5% 250 ML IV ONE (16:36)
[2021-06-28] MEDS ORDERED: NALOXONE HCL 0.4 MG/1 ML VIAL/CARP IV STA (16:41)
[2021-06-28 16:49] LABS: Amphetamines+Metham, Urine Neg (Neg); Barbiturates, Urine Neg (Neg); Benzodiazepine, Urine Pos (Neg); Cocaine, Urine Neg (Neg); MDMA (Ecstacy), Urine Neg (Neg); Methadone, Urine Neg (Neg); Opiate, Urine Neg (Neg); Phencyclidine, Urine Neg (Neg)
--- NOTE | 2021-06-28 16:55 | XRay Report ---
XR chest 1V portable HISTORY: Altered mental status. COMPARISON: Chest 12/19/2020. FINDINGS: No pneumothorax. No pleural effusions. The heart is normal in size. There is diffuse inters titial thickening with hazy airspace opacities within the mid to lower lung zones. Mild emphysema. HE ALED LEFT RIB FRACTURES. IMPRESSION: Diffuse interstitial thickening with hazy airspace opacities within the mid to lower lung zones as pr onounced on the right. This may represent a viral pneumonia or developing pulmonary edema. ACT 112: Negative or not required by law. Electronically signed by: Corey Smith M.D. 06/28/2021 4:54 PM
[2021-06-28] MEDS ORDERED: PANTOprazole 40 MG TAB PO STA (17:25)
--- NOTE | 2021-06-28 17:33 | History & Physical Report ---
Date of Service June 28, 2021 Assessment & Plan (1) Encephalopathy: Plan: Acute metabolic encephalopathy - HPI and presentation consistent with possible accidental overdose of Benzo - Possible delirium onset as well with fragmented sleep - Continue with IVF resuscitation - Hold Ativan for remaining of the day, can likely restart in morning - Follow for withdrawal (2) Abnormal CXR: Plan: Diffuse interstitial thickening with hazy airspace opacities within the mid to lower lung zones as pronounced on the right. - Aspiration vs. infectious process - WBC not elevated but noted hypoxia - NLR 3.5:1 - Cultures pending - CRP, ESR, PCT pending - Continue with her Rocephin and Azithromycin in the setting of encephalopathy until infectious etiology becomes more clear - can likely de-escalate by morning (3) Abdominal pain: Plan: Non-specific on exam without acute rigidity or guarding. - No acute process seen on CT scan of abdomen and pelvis - Follow clinically (4) Hypercarbia: Plan: Likely directly related to #1 - patient with previous history of smoking without dx of COPD and her decrease of PH would align to acute - Supportive care at this time - repeat VBG pending- improving (5) Anxiety and depression: Plan: As above, continue with her low dose Benzo likely resume tomorrow - likely related to difficulty of coping with current medical diagnosis workup - She is unsure why she missed her previous appointment or when her follow up is (6) Lung nodule: Plan: Stable - consider pulmonary consultation as patient missed her last appointment - Her next scheduled Chest CT is in October - If her mental status does not clear, consider brain MRI for mets (7) GERD (gastroesophageal reflux disease): Plan: GERD with likely aspiration pneumonitis - Protonix 40mg PO daily - Patient states she takes OTC nexium at home History of Present Illness Primary Care Provider: Escobar Viera Jr, DO 66 YOF with past medical history of: Anxiety, SVT(AVNRT), ablation in 2019, cataract surgery, GERD, lung nodule. Patient diagnosed with lung nodules with 8mm ground-glass nodule at right apex unchanged from 2019, 5mm ground glass right upper lobe unchanged from 2016; failed to follow up in January of 2021. Since this admission the patient states that she has felt more anxious. Over the past 2 months she notices increase in anxiety, difficulty sleeping depending on her Ativan to go to sleep. Patient is unsure why she came to the EMD today other than "just not feeling right". She was noted to have decreased awareness and functionality in the EMD without any focal deficits on presentation leading to a CT scan of the head, this was negative for acute process. The patient also had a toxicology workup that revealed only her prescribed benzo, and a negative alcohol. She was noted to be hypercarbic in the EMD to 60 with PH of 7.3, she was given a dose of Narcan in as well with no response, however following time and hydration her mental status did improve. The patient is able to converse and recall events from her history as well as short term recall. Her CXR in the EMD and CT scan of abdomen did note right>left opacities, this was consistent with her story of waking up earlier today with vomitus in her mouth following a "nasty belch", she was started on Azithromycin and Rocephin in the EMD, will continue this in light of her mentation while her blood and urine cultures are pending. Patient will be admitted for encephalopathy likely related to increase benzo use, will continue to evaluate for infectious pathology or alternate reasons for her state. Currently as above improving. Patient has received her COVID vaccine and COVID test on admission was Negative Allergies Allergy/AdvReac Type Severity Reaction Status Date / Time Penicillins Allergy Intermediate Hives Verified 06/28/21 15:39 Home Medications Medication Instructions Recorded Confirmed Type alprazolam 0.5 mg tablet (Xanax) 0.5 mg PO TID PRN 11/14/19 06/28/21 History acetaminophen 500 mg tablet 1,000 mg PO Q6H PRN 04/21/20 06/28/21 History (Tylenol Extra Strength) ibuprofen 200 mg tablet 400 - 600 mg PO Q8H PRN 04/21/20 06/28/21 History aluminum-mag hydroxide-simethicone 0 ml PO QID PRN 06/28/21 06/28/21 History 200 mg-200 mg-20 mg/5 mL oral susp bismuth subsalicylate 262 mg/15 mL 0 mg PO QID PRN 06/28/21 06/28/21 History oral suspension (Pepto-Bismol) Past Med/Surg History Medical History Anxiety and depression Degenerative disc disease Hx of supraventricular tachycardia BY DR. BANERJEE AT [facility] Migraine Osteoarthritis Spinal stenosis Surgical History Fusion of spine LUMBAR H/O cardiac radiofrequency ablation H/O vitrectomy LEFT H/O: hysterectomy 2009 History of bilateral tubal ligation History of colonoscopy History of esophagogastroduodenoscopy (EGD) History of tooth extraction Family History Grandfather (Paternal) Cancer Uncle Cancer Grandfather (Paternal) Colorectal cancer Other Hypertension No significant family history Social History Smoking Status: Former smoker Tobacco Type: Cigarettes Cigarettes Per Day: 10; Second Hand Exposure: No; Hx Alcohol Use: No Hx Substance Use: No Preferred Language: [place] Manager Logistic Required: No Beliefs That Will Affect Care: None marital status: / Current Living Situation: Family current occupational status: retired and disabled Feels Safe at Home: Yes Assistive Devices: Denture - Upper, Denture - Lower and Glasses Review of Systems Review of Systems: REVIEW OF SYSTEMS: Constitutional: No fever, sweats or chills, difficulty sleeping, increase in anxiety Eyes: No diplopia, no worsening or blurred vision ENT: normal hearing, no trouble swallowing Respiratory: No cough, sputum, dyspnea at rest or on exertion Cardiovascular: No chest pain, tightness or palpitations Abdomen: (+) generalized discomfort and nausea, No diarrhea or constipation Musculoskeletal: No joint pain, calf pain, swelling Neurologic: (+) confusion with awakening, No weakness, numbness/tingling, or balance problems Psychiatric: (+) anxiety or depression Skin: No rash or itch Physical Exam Physical Exam: PHYSICAL EXAM: General: somnulent awakens upon entering the room and able to stay awake through the entire H&P Head: Normocephalic, atraumatic ENT: PERRL, EOMI, no pharyngeal exudate, mucous membranes moist Neuro: AAO x 3, speech clear and appropriate, strength intact bilaterally 5/5, sensation intact and equal all extremities and dermatomes, no pronator drift, no focal deficits Chest: equal rise and fall of the chest, no accessory muscle use, no heaves or thrills, Clear to auscultation, on room air, Cardiac: Regular rate and rhythm, telemetry reviewed, skin warm dry, cap refill <3 seconds, peripheral pulses +2 no JVD, Grade I systolic murmur best heard at left PMI, no edema GI: NABS x 4 quadrants, soft, tender to palpation lower abdomen, no rebound, guarding or tenderness : Spontaneously voiding, no pain, no CVA tenderness, Extremities: Normal inspection, no peripheral edema or erythema, calfs nontender to palpation Psych: intoxicated appearance Skin: no rash or erythema Results & Data Results & Data ([facility]) Vital Signs (Past 12 Hours) Vital Signs Pulse Resp BP Pulse Ox 06/28/21 16:00 126 H 26 H 159/96 H 91 06/28/21 15:30 148/84 H 98 06/28/21 15:00 121 H 24 147/81 H 94 06/28/21 14:30 126 H 16 93 06/28/21 14:26 132 H 24 126/81 89 L 06/28/21 14:16 16 158/78 H 93 Laboratory Results Abnormal lab results 06/28/21 06/28/21 06/28/21 Range/Units 14:45 14:45 14:45 Neut # (Auto) 6.89 H (1.4-6.5) K/uL Immature Gran # (Auto) 0.03 H (0.00-0.02) K/uL VBG pH 7.30 L (7.36-7.41) VBG pCO2 63 H (38-50) mmHg Glucose 118 H (70-99) mg/dl POC Glucose (other) (70-99) mg/dl Lactate (0.4-2.0) mmol/L AST 58 H (15-37) U/L Globulin 4.1 H (2.5-4.0) gm/dl Ur Specific [place] (1.000-1.030) Ur Leukocyte Esterase (Negative) Urine WBC (Auto) (0-5) /hpf U Epithel Cells (Auto) (0-5) /lpf U Benzodiazepines Scrn (Neg) 06/28/21 06/28/21 06/28/21 Range/Units 14:45 14:47 16:03 Neut # (Auto) (1.4-6.5) K/uL Immature Gran # (Auto) (0.00-0.02) K/uL VBG pH (7.36-7.41) VBG pCO2 (38-50) mmHg Glucose (70-99) mg/dl POC Glucose (other) 112 H (70-99) mg/dl Lactate 2.1 H* (0.4-2.0) mmol/L AST (15-37) U/L Globulin (2.5-4.0) gm/dl Ur Specific [place] 1.033 H (1.000-1.030) Ur Leukocyte Esterase 2+ H (Negative) Urine WBC (Auto) 10-30 H (0-5) /hpf U Epithel Cells (Auto) >30 H (0-5) /lpf U Benzodiazepines Scrn (Neg) 06/28/21 Range/Units 16:03 Neut # (Auto) (1.4-6.5) K/uL Immature Gran # (Auto) (0.00-0.02) K/uL VBG pH (7.36-7.41) VBG pCO2 (38-50) mmHg Glucose (70-99) mg/dl POC Glucose (other) (70-99) mg/dl Lactate (0.4-2.0) mmol/L AST (15-37) U/L Globulin (2.5-4.0) gm/dl Ur Specific [place] (1.000-1.030) Ur Leukocyte Esterase (Negative) Urine WBC (Auto) (0-5) /hpf U Epithel Cells (Auto) (0-5) /lpf U Benzodiazepines Scrn Pos H (Neg) Diagnostic Findings Abdomen/Pelvis CT 06/28/21 14:32 CT OF THE ABDOMEN AND PELVIS WITH CONTRAST CLINICAL HISTORY: Altered mental status. COMPARISON STUDY: PET/CT January 15, 2020. TECHNIQUE: Following IV administration of 94 mL of Optiray, axial images of the abdomen and pelvis were obtained from the lung bases to the proximal femurs. Images were reviewed in the axial, sagittal, and coronal planes. IV contrast was administered without complication. Automated exposure control was utilized for the study. A dose lowering technique was utilized adhering to the principles of ALARA. CT DOSE: 1219.55 mGy.cm FINDINGS: Visualized portions of the lower chest demonstrate moderate alveolar opacities within the right middle and right lower lobes as well as mild left lung airspace opacities. These are new since chest CT of June 17, 2021. No pneumatosis, free air or portal venous gas is present. There are no hepatic lesions. There is no biliary or pancreatic ductal dilatation. Pancreas divisum is incidentally noted. The spleen, adrenal glands and kidneys are normal. There is no hydronephrosis. There is no evidence for a bowel obstruction. The appendix is normal. No lymphadenopathy or ascites is present. No acute fracture or suspicious lesion is identified within the visualized skeletal structures. IMPRESSION: 1. Bilateral lower lung opacities, greater within the right lung. The findings represent an infectious process. 2. No acute process within the abdomen or pelvis. 3. Normal appendix. No bowel obstruction. No bowel wall thickening. ACT 112: Negative or not required by law. Electronically signed by: Drake Justin M.D. 06/28/2021 4:[address] 06/28/21 14:32 CT SCAN OF THE BRAIN WITHOUT IV CONTRAST CLINICAL HISTORY: Change in mental status. COMPARISON STUDY: MRI of the brain dated 05/11/2012. TECHNIQUE: Unenhanced axial CT scan of the brain is performed from the vertex to the skull base. A dose lowering technique was utilized adhering to the principles of ALARA. FINDINGS: Brain parenchyma: There are age-related involutional changes noting minimal subcortical and periventricular microangiopathic change. There is no hemorrhage, mass effect, or evidence of acute territorial ischemia by CT criteria. Gibson- white matter differentiation is preserved. No extra-axial fluid collection is seen. Ventricles, sulci, cisterns: Prominent secondary to involutional change. Intracranial vasculature: There is mild atherosclerotic calcification of the cavernous carotid arteries. Calvarium: Unremarkable. Sinuses and mastoids: The visualized paranasal sinuses are clear. The mastoid air cells are well pneumatized. Orbits: The bony orbits are grossly intact. IMPRESSION: There is no hemorrhage, mass effect, or evidence of acute territorial ischemia by CT criteria. Electronically signed by: Isidoro Eden M.D. 06/28/2021 3:53 PM Chest X-Ray 06/28/21 15:55 XR chest 1V portable HISTORY: Altered mental status. COMPARISON: Chest 12/19/2020. FINDINGS: No pneumothorax. No pleural effusions. The heart is normal in size. There is diffuse interstitial thickening with hazy airspace opacities within the mid to lower lung zones. Mild emphysema. HEALED LEFT RIB FRACTURES. IMPRESSION: Diffuse interstitial thickening with hazy airspace opacities within the mid to lower lung zones as pronounced on the right. This may represent a viral pneumonia or developing pulmonary edema. ACT 112: Negative or not required by law. Electronically signed by: Corey Smith M.D. 06/28/2021 4:54 PM Medications Administered Home Medications alprazolam 0.5 mg tablet (Xanax) 0.5 mg PO TID PRN 11/14/19 [History Confirmed 06/28/21] acetaminophen 500 mg tablet (Tylenol Extra Strength) 1,000 mg PO Q6H PRN 04/21/20 [History Confirmed 06/28/21] ibuprofen 200 mg tablet 400 - 600 mg PO Q8H PRN 04/21/20 [History Confirmed 06/28/21] aluminum-mag hydroxide-simethicone 200 mg-200 mg-20 mg/5 mL oral susp 0 ml PO QID PRN 06/28/21 [History Confirmed 06/28/21] bismuth subsalicylate 262 mg/15 mL oral suspension (Pepto-Bismol) 0 mg PO QID PRN 06/28/21 [History Confirmed 06/28/21] Active Medications Azithromycin 500 mg/ Dextrose 255 mls @ 125 mls/hr IV ONE ONE Stop: 06/28/21 18:38 ECG Additional Comments: Sinus tachycardia Rightward axis Borderline ECG When compared with ECG of 19-DEC-2020 12:47, Vent. rate has increased BY 48 BPM Criteria for Septal infarct are no longer Present Code Status & VTE Plan Code Status CODE: FULL VTE: SCD's, Lovenox 40 sub q daily VTE Prophylaxis Plan VTE Prophylaxis will be ordered: Yes Supervising Physician Co-Signing Physician Notes I supervised GLADIS Mcwilliams on this admission. I interviewed and examined the patient independently of him. The plan is as written in his note except for any following changes/exceptions: None 66yo F w/ hx of benzo use who presents with AMS. She appears to be improving while in the ED. On my interview after Mr. Ruby's, she wakes relatively easily to verbal stimulus and reports she has to use the restroom. She is easily protecting her airway and has a non-focal neurologic exam with general lethargy. Presentation is consistent with clearing intoxication. Lactate is clearing and procalcitonin is normal. Will continue supportive care. Continue CAP abx for now, though may be able to stop course early if patient improves. PG Care Time/CCT Total # of Minutes Spent Total Time Spent with Patient: Total time spent is greater than 50% in coordination of care (as documented) at patient's floor/unit and/or counseling patient: Coding Level of Care Code 13265 Initial Inpt Care Lvl 3 Diagnoses Encephalopathy G93.40 Abdominal pain R10.9 Anxiety and depression F41.9; F32.9 Abnormal CXR R93.89 Hypercarbia R06.89 Lung nodule R91.1 GERD (gastroesophageal reflux disease) K21.9
[2021-06-28 18:36] LABS: Base Excess VBG -0.1 mEq/L; HCO3 VBG 27 mmol/L; PCO2 VBG 54 mmHg (38-50); PO2 VBG 18 mmHg; pH VBG 7.32 (7.36-7.41)
[2021-06-28 18:42] LABS: Oxygen Saturation VBG < 60.0 %
[2021-06-28] MEDS: LACTATED RINGER'S 1,000 ML IV SCH (19:31)
[2021-06-29] MEDS ORDERED: ALUMINUM/MAGNESIUM SUSP 30 ML UDC PO PRN (01:06)
[2021-06-29] MEDS ORDERED: ONDANSETRON INJ 2 MG/ML 2 ML VIAL IV PRN (01:06)
[2021-06-29] MEDS: LACTATED RINGER'S 1,000 ML IV SCH ×3 (03:03→23:23)
[2021-06-29 06:06] LABS: Basophils # (auto) 0.01 K/uL (0-0.2); Basophils % (auto) 0.1 %; Eosinophils # (auto) 0.03 K/uL (0-0.5); Eosinophils % (auto) 0.2 %; Hematocrit (blood only) 34.3 % (37-47); Hemoglobin 11.7 g/dL (12.0-16.0); Immature Granulocytes # (auto) 0.04 K/uL (0.00-0.02); Immature Granulocytes % (auto) 0.3 %; Lymphocytes % (auto) 15.5 %; Mean Corpuscular Hemoglobin 30.7 pg (25-34); Mean Corpuscular Hgb Conc 34.1 g/dL (32-36); Mean Platelet Volume 8.8 fL (7.4-10.4); Monocytes % (auto) 7.8 %; Neutrophils # (auto) 11.76 K/uL (1.4-6.5); Neutrophils % (auto) 76.1 %; Platelet Count 188 K/uL (130-400); RDW Coefficient of Variation 12.9 % (11.5-14.5); RDW Standard Deviation 42.1 fL (36.4-46.3); Red Blood Count 3.81 M/uL (4.2-5.4); White Blood Count 15.44 K/uL (4.8-10.8)
[2021-06-29 06:33] LABS: BUN Creatinine Ratio 19.3 (10-20); Calcium 8.5 mg/dl (8.5-10.1); Creatinine Clr Calc Pharmacy 104.2 ml/min; Est GFR (African American) 113.5 ml/min; Magnesium 1.9 mg/dl (1.8-2.4); Potassium 4.2 mmol/L (3.5-5.1)
[2021-06-29] MEDS: ACETAMINOPHEN 325 MG TAB PO PRN ×2 (07:57→19:38)
[2021-06-29] MEDS: AZITHROMYCIN 250 MG TAB PO SCH (09:04)
[2021-06-29] MEDS: ENOXAPARIN INJ 40 MG/0.4 ML SYR SQ SCH (09:04)
[2021-06-29] MEDS ORDERED: IBUPROFEN 800 MG TAB PO PRN (19:50)
[2021-06-29] MEDS ORDERED: ACETAMINOPHEN 500 MG TAB PO PRN (19:50)
[2021-06-29] MEDS ORDERED: cefTRIAXone SODIUM 1,000 MG in DEXTROSE 5% 50 ML IV SCH (20:00)
--- NOTE | 2021-06-29 21:01 | Hospitalist Progress Note ---
Date of Service June 29, 2021 Assessment & Plan (1) Encephalopathy: Plan: Acute metabolic encephalopathy - HPI and presentation consistent with possible accidental overdose of Benzo - Possible delirium onset as well with fragmented sleep - Continue with IVF resuscitation - Hold Ativan for remaining of the day, can likely restart in morning - Follow for withdrawal -will cotninue to monitor overnight. (2) Abnormal CXR: Plan: Diffuse interstitial thickening with hazy airspace opacities within the mid to lower lung zones as pronounced on the right. - Aspiration vs. infectious process - WBC not elevated but noted hypoxia - NLR 3.5:1 - Cultures pending - CRP, ESR, PCT pending - Continue with her Rocephin and Azithromycin in the setting of encephalopathy until infectious etiology becomes more clear - can likely de-escalate by morning (3) Abdominal pain: Plan: Non-specific on exam without acute rigidity or guarding. - No acute process seen on CT scan of abdomen and pelvis - Follow clinically (4) Hypercarbia: Plan: Likely directly related to #1 - patient with previous history of smoking without dx of COPD and her decrease of PH would align to acute - Supportive care at this time - repeat VBG pending- improving (5) Anxiety and depression: Plan: As above, continue with her low dose Benzo likely resume tomorrow - likely related to difficulty of coping with current medical diagnosis workup - She is unsure why she missed her previous appointment or when her follow up is (6) Lung nodule: Plan: Stable - consider pulmonary consultation as patient missed her last appointment - Her next scheduled Chest CT is in October - If her mental status does not clear, consider brain MRI for mets (7) GERD (gastroesophageal reflux disease): Plan: GERD with likely aspiration pneumonitis - Protonix 40mg PO daily - Patient states she takes OTC nexium at home Admission and Anticipated Discharge Date Admission Date: June 28, 2021 Subjective Patient reports feeling better. She states this was not a suicide attempt. Psych consult was called, however, patient kicked the psych team out of the room. Review of Systems Review of Systems: All systems reviewed & are unremarkable except as noted in HPI & below Physical Exam Physical Exam: General: Awake, Head: Normocephalic, atraumatic ENT: PERRL, EOMI, no pharyngeal exudate, mucous membranes moist Neuro: AAO x 3, speech clear and appropriate, strength intact bilaterally 5/5, sensation intact and equal all extremities and dermatomes, no pronator drift, no focal deficits Chest: equal rise and fall of the chest, no accessory muscle use, no heaves or thrills, Clear to auscultation, on room air, Cardiac: Regular rate and rhythm, telemetry reviewed, skin warm dry, cap refill <3 seconds, peripheral pulses +2 no JVD, Grade I systolic murmur best heard at left PMI, no edema GI: NABS x 4 quadrants, soft, tender to palpation lower abdomen, no rebound, guarding or tenderness : Spontaneously voiding, no pain, no CVA tenderness, Extremities: Normal inspection, no peripheral edema or erythema, calfs nontender to palpation Psych: intoxicated appearance Skin: no rash or erythema Results & Data Results & Data ([facility]) Vital Signs (Past 12 Hours) Vital Signs Temp Pulse Pulse Resp BP Pulse Ox 06/29/21 19:00 36.6 C 88 16 124/76 95 06/29/21 16:41 36.9 C 83 18 114/62 98 06/29/21 15:00 68 06/29/21 11:47 37 C 92 H 20 131/59 L 97 PG Care Time/CCT Total # of Minutes Spent Total Time Spent with Patient: Total time spent is greater than 50% in cook ship rdination of care (as documented) at patient's floor/unit and/or counseling patient: Coding Level of Care Code 35548 Subseq Hosp Care Lvl 2 Diagnoses Encephalopathy G93.40 Abnormal CXR R93.89 Abdominal pain R10.9 Hypercarbia R06.89 Anxiety and depression F41.9; F32.9 Lung nodule R91.1 GERD (gastroesophageal reflux disease) K21.9 Time Spent (min) 25
[2021-06-30 06:21] LABS: Basophils # (auto) 0.01 K/uL (0-0.2); Basophils % (auto) 0.1 %; Eosinophils # (auto) 0.12 K/uL (0-0.5); Eosinophils % (auto) 1.4 %; Hematocrit (blood only) 33.3 % (37-47); Hemoglobin 11.2 g/dL (12.0-16.0); Immature Granulocytes # (auto) 0.02 K/uL (0.00-0.02); Immature Granulocytes % (auto) 0.2 %; Lymphocytes % (auto) 30.9 %; Mean Corpuscular Hgb Conc 33.6 g/dL (32-36); Mean Corpuscular Volume 92.2 fL (80-100); Mean Platelet Volume 8.7 fL (7.4-10.4); Monocytes # (auto) 0.49 K/uL (0.11-0.59); Monocytes % (auto) 5.6 %; Neutrophils # (auto) 5.41 K/uL (1.4-6.5); Neutrophils % (auto) 61.8 %; Platelet Count 189 K/uL (130-400); RDW Coefficient of Variation 12.9 % (11.5-14.5); RDW Standard Deviation 43.8 fL (36.4-46.3); Red Blood Count 3.61 M/uL (4.2-5.4); White Blood Count 8.75 K/uL (4.8-10.8)
[2021-06-30 06:55] LABS: Calcium 8.7 mg/dl (8.5-10.1); Est GFR (African American) 111.6 ml/min; Est GFR (Non-African American) 96.3 ml/min; Magnesium 1.9 mg/dl (1.8-2.4); Potassium 3.8 mmol/L (3.5-5.1)
[2021-06-30] MEDS: ENOXAPARIN INJ 40 MG/0.4 ML SYR SQ SCH (08:46)
[2021-06-30] MEDS: AZITHROMYCIN 250 MG TAB PO SCH (08:46)
--- NOTE | 2021-06-30 15:50 | Electrocardiogram Report ---
Test Reason : Blood Pressure : / mmHG Vent. Rate : 126 BPM Atrial Rate : 126 BPM P-R Int : 168 ms QRS Dur : 082 ms QT Int : 296 ms P-R-T Axes : 059 090 029 degrees QTc Int : 428 ms Sinus tachycardia Rightward axis Borderline ECG When compared with ECG of 19-DEC-2020 12:47, Vent. rate has increased BY 48 BPM Criteria for Septal infarct are no longer Present Confirmed by Preston Boland ([id number]) on 06/30/2021 3:49:54 PM Referred By: REFERRED SELF Confirmed By:Preston Boland
[2021-07-01 06:01] LABS: 7-Aminoclonaz, Confirm NEGATIVE ng/mL (<25); Hydro-Alp Ur, GC/MS 43 ng/mL (<25); Hydroxyethylflurazepam, Conf NEGATIVE ng/mL (<50); Hydroxymidazolam Ur, GC/MS NEGATIVE ng/mL (<50); Hydroxytriazolam NEGATIVE ng/mL (<50); Lorazepam, Ur GC/MS NEGATIVE ng/mL (<50); Nordiazepam, Confirm NEGATIVE ng/mL (<50); Oxazepam Ur, GC/MS NEGATIVE ng/mL (<50); Temazepam, Confirm NEGATIVE ng/mL (<50)
--- NOTE | 2021-07-02 07:12 | Discharge Summary ---
Date of Service June 30, 2021 Admission HPI Per Admitting Provider 66 YOF with past medical history of: Anxiety, SVT(AVNRT), ablation in 2019, cataract surgery, GERD, lung nodule. Patient diagnosed with lung nodules with 8mm ground-glass nodule at right apex unchanged from 2019, 5mm ground glass right upper lobe unchanged from 2016; failed to follow up in January of 2021. Since this admission the patient states that she has felt more anxious. Over the past 2 months she notices increase in anxiety, difficulty sleeping depending on her Ativan to go to sleep. Patient is unsure why she came to the EMD today other than "just not feeling right". She was noted to have decreased awareness and functionality in the EMD without any focal deficits on presentation leading to a CT scan of the head, this was negative for acute process. The patient also had a toxicology workup that revealed only her prescribed benzo, and a negative alcohol. She was noted to be hypercarbic in the EMD to 60 with PH of 7.3, she was given a dose of Narcan in as well with no response, however following time and hydration her mental status did improve. The patient is able to converse and recall events from her history as well as short term recall. Her CXR in the EMD and CT scan of abdomen did note right>left opacities, this was consistent with her story of waking up earlier today with vomitus in her mouth following a "nasty belch", she was started on Azithromycin and Rocephin in the EMD, will continue this in light of her mentation while her blood and urine cultures are pending. Patient will be admitted for encephalopathy likely related to increase benzo use, will continue to evaluate for infectious pathology or alternate reasons for her state. Currently as above improving. Patient has received her COVID vaccine and COVID test on admission was Negative Principal Diagnosis Encephalopathy Discharge Exam General: Awake, alert oriented x 3 Head: Normocephalic, atraumatic ENT: PERRL, EOMI, no pharyngeal exudate, mucous membranes moist Neuro: AAO x 3, speech clear and appropriate, strength intact bilaterally 5/5, sensation intact and equal all extremities and dermatomes, no pronator drift, no focal deficits Chest: equal rise and fall of the chest, no accessory muscle use, no heaves or thrills, Clear to auscultation, on room air, Cardiac: Regular rate and rhythm, telemetry reviewed, skin warm dry, cap refill <3 seconds, peripheral pulses +2 no JVD, Grade I systolic murmur best heard at left PMI, no edema GI: NABS x 4 quadrants, soft, tender to palpation lower abdomen, no rebound, guarding or tenderness Extremities: Normal inspection, no peripheral edema or erythema, calfs nontender to palpation Skin: no rash or erythema Discharge Data Allergies Allergy/AdvReac Type Severity Reaction Status Date / Time Penicillins Allergy Intermediate Hives Verified 06/28/21 15:39 Consultations 06/28/21 16:41 ED Decision to Admit Stat Ordered Studies 06/28/21 14:32 CT abd pelvis IV con only Stat CT head/brain wo con Stat Hospital Course (1) Encephalopathy: Acute metabolic encephalopathy - HPI and presentation consistent with possible accidental overdose of Benzo - Possible delirium onset as well with fragmented sleep - Patient responded to IVF resucitation and holding ativan. -UDS: positive for benzo which was supported by her history. Due to concern of accidental overdose, psych consult was ordered. However patient refused to interact with psych. -Patient was monitor overnight and was discharge the following day as she was back to her baseline. -Patient reports she is not a harm to herself. (2) Abnormal CXR: Diffuse interstitial thickening with hazy airspace opacities within the mid to lower lung zones as pronounced on the right. - Aspiration vs. infectious process - WBC not elevated but noted hypoxia - NLR 3.5:1 - Cultures pending - CRP, ESR, PCT pending - Continue with her Rocephin and Azithromycin in the setting of encephalopathy until infectious etiology becomes more clear - will finish antibiotics for a 5 day course: as stated below in discharge medications. (3) Abdominal pain: Non-specific on exam without acute rigidity or guarding. - No acute process seen on CT scan of abdomen and pelvis - Follow clinically (4) Hypercarbia: Likely directly related to #1 - patient with previous history of smoking without dx of COPD and her decrease of PH would align to acute - Supportive care at this time - - improved (5) Anxiety and depression: As above, continue with her low dose Benzo likely resume tomorrow - likely related to difficulty of coping with current medical diagnosis workup - She is unsure why she missed her previous appointment or when her follow up is (6) Lung nodule: Stable - consider pulmonary consultation as patient missed her last appointment: will need followup. - Her next scheduled Chest CT is in October - (7) GERD (gastroesophageal reflux disease): GERD with likely aspiration pneumonitis - Protonix 40mg PO daily - Patient states she takes OTC nexium at home Total Time Total Time Spent Total Time Spent (In Minutes): 32 Discharge Plan Discharge Items Patient Disposition: Home - Self-Care Reason For Visit: ENCEPHALOPATHY Discharge Diagnosis: encephalopathy Activity: Resume your previous activity Non-emergency contact: Primary Care Provider Call non-emergency contact if: you have any medication questions Follow-up/Referrals: Escobar Viera Jr, [Primary Care Provider] - 07/13/21 11:00 am (Please follow up with Dr. Viera on Monday07/13/21 at 11:00 am. Please arrive to the office at 10:45 am for your appointment. If you are unable to keep this appointment, please call the office to reschedule at [phone].) Diet: Carb Consistent or DM2 Addtl Attending Provider Instructions: You have been hospitalized for an acute medical problem. During your stay at [facility], we have made an effort to correct the problem that brought you to the hospital while keeping you as comfortable as possible. Medications were used to bring your condition under control and your discharge instructions will include directions for any medications you should take after leaving the hospital. Please make sure you see your Primary Care Provider as part of your follow up plan. Recommend followup with your Primary care provider. Will recommend cutting back on your benzodiazepine. Start azithromycin tomorrow in AM. Cefpodoxime in PM. Pending Studies at Discharge: No Stand-Alone Forms: My [facility], Smoking Cessation Medications and DC Order Prescriptions: New azithromycin 250 mg Tablet 250 mg PO QAM Qty: 3 RF: 0 cefpodoxime 200 mg tablet 200 mg PO BID Qty: 7 RF: 0 Continued alprazolam [Xanax] 0.5 mg tablet 0.5 mg PO TID PRN (Reason: Anxiety) RF: 0 acetaminophen [Tylenol Extra Strength] 500 mg Tablet 1,000 mg PO Q6H PRN (Reason: Pain) RF: 0 ibuprofen 200 mg Tablet 400 - 600 mg PO Q8H PRN (Reason: Pain) RF: 0 bismuth subsalicylate [Pepto-Bismol] 262 mg/15 mL Suspension 0 mg PO QID PRN (Reason: gi-upset) RF: 0 alum-mag hydroxide-simeth 200-200-20 mg/5 mL Suspension 0 ml PO QID PRN (Reason: gi-upset) RF: 0 Discharge Orders: Discharge Order (Routine); Ordered 06/30/21 Ordered By: Rao Tamayo Admission Data Admit Date/Time: 06/28/21 17:29 Attending Provider: Rao Tamayo Admit Provider: David Montgomery Primary Care Provider: Escobar Viera Jr Other Providers: David Montgomery Other Interventions: Discharge Summary Assessment (RN) Last Done: 06/30/21 09:41 Coding Level of Care Code D/C DAY MANAGEMENT >30 MINS Diagnoses Encephalopathy G93.40 Abnormal CXR R93.89 Abdominal pain R10.9 Hypercarbia R06.89 Anxiety and depression F41.9; F32.9 Lung nodule R91.1 GERD (gastroesophageal reflux disease) K21.9 Time Spent (min) 32
== END 2021-06-30 11:19 | disposition home or self-care (01) | DRG 93 ==
LOC: ED 14:12 → SUATTDRO 17:29 → 2S 17:29
DX: K21.9 Gastro-esophageal reflux disease without esophagitis; Z87.891 Personal history of nicotine dependence; F41.9 Anxiety disorder, unspecified; T42.4X1A Poisoning by benzodiazepines, accidental (unintentional), initial encounter; F32.9 Major depressive disorder, single episode, unspecified; Z88.0 Allergy status to penicillin; R91.1 Solitary pulmonary nodule; G92 Toxic encephalopathy

== ENCOUNTER 2023-06-29 21:24 | Observation (INO) ==
[2023-06-29] MEDS ORDERED: KETOROLAC TROMETHAMINE 15 MG/ML VIAL IV ONE (21:51)
[2023-06-29] MEDS ORDERED: ONDANSETRON INJ 2 MG/ML 2 ML VIAL IV STA (21:51)
[2023-06-29] MEDS ORDERED: CEFEPIME 2,000 MG/20 ML VIAL IV STA (21:51)
[2023-06-29] MEDS ORDERED: SODIUM CHLORIDE 0.9% 500 ML IV SCH (22:00)
[2023-06-29] MEDS: SODIUM CHLORIDE 0.9% 1,000 ML IV SCH (22:04)
[2023-06-29] MEDS ORDERED: methylPREDNISolone 125 MG/2 ML VIAL IV STA (22:07)
[2023-06-29] MEDS ORDERED: ALBUT/IPRATROP 3MG/0.5MG NEB 3 ML VIAL NEB STA (22:07)
[2023-06-29 22:08] LABS: iSTAT Hemoglobin 14.6 g/dl (12.0-16.0); iSTAT Ionized Calcium 1.14 mmol/l (1.12-1.32)
--- NOTE | 2023-06-29 22:09 | Emergency Department Note ---
Impression & Plan Acute hypoxemic respiratory failure due to COVID-19, Hyponatremia ED Provider Note NAME: ANGÉLICA NEELY AGE: 68 SEX: F : 1955 ARRIVES VIA: Ambulance INFORMANT: Patient, ED PROVIDER(S): Ti Locke MD CHIEF COMPLAINT: Fever, nausea MEDICAL DECISION MAKING: Patient presents due to concern for fever and nausea. The patient was noted to be hypoxemic was placed on 2 L supplemental nasal cannula oxygen. The patient d id have empiric sepsis orders ordered in addition to 2500 cc bolus IV cefepime antipyretics DuoNeb treatment as well as steroids. Upon reassessment the patient did appear to be significantly improved. The patient was still on supplemental nasal cannula oxygen. Patient's blood work shows a lower white count of 3.6 with normal hemoglobin and platelet count. Kidney function grossly unremarkable. Hyponatremia noted at 133. Troponin is not elevated. The patient is COVID-positive. Pro-Garrett is not elevated. Given the patient's COVID hypoxemia the patient already did receive methylprednisolone. Patient does have an oxygen requirement. I did through the on-call hospital service Dr. Villagomez and the patient was admitted to the medicine service. Critical Care: I have personally spent 36 minutes of critical care time in direct management of this patient. This includes bedside care, interpretation of diagnostic studies, and testing, discussion with consultants, patient, and family members, and other require inpatient management activities. This 36 minutes is in excess of all separately billable procedures. Prior /Outside records reviewed: I did review a discharge summary from Dr. Tamayo from June 2021. Patient has a known history of SVT AVNRT ablation in 2019 cataract surgery GERD lung nodule and anxiety. Patient had been admitted at that time for acute metabolic encephalopathy possibly secondary to overdose of benzos. Differential diagnosis: Sepsis, UTI, pneumonia, metabolic, electrolyte abnormalities, cardiac sources, intracerebral event, toxicologic, neurologic, as well as other pathologies. Diagnostics, as interpreted by me: ECG: Normal sinus rhythm, rate of 100, normal intervals, normal axis no ST elevations Cardiac monitoring: An order was placed for continuous cardiac monitoring. The monitor shows a rate of 102 with tachycardic and rate rhythm. Patient was placed on pulse oximetry Medical decision rules: none Imaging studies: See below I informally reviewed the patient's chest x-ray which does not show obvious consolidative pneumonia or pneumothorax. HPI: Patient presents from home due to concern for feeling unwell. The patient states that last evening that there were much of alarms going off in her home as she lives out towards [facility] and that her dog kept her up. Patient did not sleep well and felt tired and unwell throughout the day. The patient has noticed some associated nausea but no vomiting. The patient does complain of abdominal pain as well as left-sided flank pain. Patient has had some occasional dysuria. Patient is a smoker. The patient has had cough that is nonproductive. No falls or trauma. Patient did not take anything for her symptoms at home. PAST MEDICAL HISTORY: See Below PAST SURGICAL HISTORY: See Below SOCIAL HISTORY: See Below HOME MEDICATIONS: See Below ALLERGIES: See Below VITALS: See Below PHYSICAL EXAMINATION: GENERAL: Mild distress, nasal cannula in place EYE EXAM: Normal conjunctiva. PERRL, no anisocoria and EOM's grossly intact w/o pain. OROPHARYNX: Moist mucus membranes, grossly normal dentition. NECK: Supple, no nuchal rigidity, no adenopathy, non-tender. No signs of meningismus. FROM of the neck with good chin to chest and neck extension. No stridor. LUNGS: Clear to auscultation. Normal chest wall mechanics. HEART: Tachycardic and regular, no MRG. ABDOMEN: Abdomen soft, non-tender, no masses, no rebound or guarding. BACK: No CVA TTP. SKIN: No rashes and no bruising. UPPER EXTREMITIES: Upper extremities are grossly normal. LOWER EXTREMITIES: Grossly normal, no edema. NEURO EXAM: A&O x3, cranial nerves II-XII grossly intact, normal speech, moves all 4 extremities. Past Med/Surg History Medical History Anxiety and depression Degenerative disc disease Hx of supraventricular tachycardia Hypothyroidism Migraine HX MIGRAINES Osteoarthritis Spinal stenosis Surgical History Fusion of spine LUMBAR H/O cardiac radiofrequency ablation BY DR. BANERJEE AT [facility] H/O vitrectomy LEFT H/O: hysterectomy 2009 History of bilateral tubal ligation History of colonoscopy History of esophagogastroduodenoscopy (EGD) History of eye surgery LEFT LASER A FEW WEEKS AGO History of left cataract surgery History of tooth extraction Family History Grandfather (Paternal) Cancer Uncle Cancer Grandfather (Paternal) Colorectal cancer Other Hypertension Social History Smoking Status: Former smoker Tobacco Type: Cigarettes Cigarettes Per Day: 10; Second Hand Exposure: No; Do You Dip or Chew Tobacco: No; Hx Alcohol Use: No Hx Substance Use: No Preferred Language: Romansh Communication Ability: Effective Lokie Engineer Required: No Beliefs That Will Affect Care: None marital status: / Current Living Situation: Family current occupational status: retired and disabled Feels Safe at Home: Yes Safety Concerns: Feels Safe At This Time Assistive Devices: Denture - Upper, Denture - Lower and Glasses Allergies Allergies Allergy/AdvReac Type Severity Reaction Status Date / Time amoxicillin [From Augmentin] Allergy Intermediate I BROKE Verified 04/05/23 21:52 OUT-HIVES clavulanic acid Allergy Intermediate I BROKE Verified 04/05/23 21:52 [From Augmentin] OUT-HIVES Penicillins Allergy Intermediate Hives Verified 04/05/23 21:52 Home Meds Home Medications Medication Instructions Recorded Confirmed levothyroxine 50 mcg tablet 50 mcg PO DAILYBB 04/05/23 06/29/23 omeprazole 20 mg capsule,delayed 20 mg PO DAILYBB 04/05/23 06/29/23 release Previous Rx's Medication Instructions Recorded albuterol sulfate 90 mcg/actuation 2 puff inhalation Q4H PRN 07/01/23 aerosol inhaler (Ventolin HFA) shortness of breath or wheezing #6.7 grams prednisone 20 mg tablet 20 mg PO DAILY 3 days #3 tabs 07/01/23 promethazine 12.5 mg tablet 12.5 mg PO TID PRN nausea, allergy 07/01/23 symptoms #10 tabs Results & Data (ED) Vital Signs Vital Signs - 24 hr 06/29/23 21:36 06/29/23 21:36 06/29/23 21:55 Temperature 39 C H Temperature Source Oral Pulse Rate 101 H Respiratory Rate 22 Blood Pressure 151/90 H Blood Pressure Mean 110 Pulse Oximetry 87 L 87 L 96 Oxygen Delivery Method Room Air Room Air Nasal Cannula Oxygen Flow Rate 0 3 Sepsis Recent Fever Within 48 Hours Yes Sepsis New/Unexplained Change in Mental Status Yes Sepsis Action Taken by Nursing Physician Notified Oxygen Flow Rate - Titration 3 Pulse Oximetry Post Tiitration 96 06/29/23 21:31 Temperature Temperature Source Pulse Rate 103 H Respiratory Rate Blood Pressure Blood Pressure Mean Pulse Oximetry Oxygen Delivery Method Oxygen Flow Rate Sepsis Recent Fever Within 48 Hours Sepsis New/Unexplained Change in Mental Status Sepsis Action Taken by Nursing Oxygen Flow Rate - Titration Pulse Oximetry Post Tiitration Home Medications Current Medication List: was personally reviewed by me Laboratory Data Attestation: I reviewed the patient's lab results. 06/29/23 21:45 06/29/23 21:45 Lab Results 06/29/23 06/29/23 06/29/23 Range/Units 21:45 21:45 21:45 WBC 3.64 L (4.8-10.8) K/ul RBC 4.37 (4.20-5.40) M/uL Hgb 13.5 (12.0-16.0) g/dl POC Hgb (12.0-16.0) g/dl Hct 39.1 (37.0-47.0) % POC Hct (37-47) % MCV 89.5 (80.0-100.0) fL MCH 30.9 (25.0-34.0) pg MCHC 34.5 (32.0-36.0) g/dL RDW Std Deviation 43.6 (36.4-46.3) fL RDW Coeff of Hernan 13.3 (11.5-14.5) % Plt Count 242 (130-400) K/uL MPV 8.6 L (9.4-12.4) fL Immature Gran % (Auto) 0.3 % Neut % (Auto) 80.3 % Lymph % (Auto) 10.7 % Hamblen % (Auto) 8.2 % Eos % (Auto) 0.0 % Baso % (Auto) 0.5 % Neut # (Auto) 2.92 (1.40-6.50) K/uL Lymph # (Auto) 0.39 L (1.20-3.40) K/uL Hamblen # (Auto) 0.30 (0.11-0.59) K/uL Eos # (Auto) 0.00 (0.00-0.50) K/uL Baso # (Auto) 0.02 (0.00-0.20) K/uL Immature Gran # (Auto) 0.01 (0.01-0.20) K/uL POC Sodium (135-144) mmol/L Sodium 133 L (136-145) mmol/L POC Potassium (3.3-5.0) mmol/L Potassium 3.9 (3.5-5.1) mmol/L POC Chloride (101-112) mmol/L Chloride 96 L (98-107) mmol/L Carbon Dioxide 29 (21-32) mmol/L POC Total CO2 (24-31) mmol/L Anion Gap 8 (3-11) POC Anion Gap (16-25) mmol/L POC BUN (7-18) mg/dl BUN 16 (6-23) mg/dl Creatinine 1.01 (0.6-1.2) mg/dl POC Creatinine (0.6-1.3) mg/dl Est Cr Clr Drug Dosing 57.3 ml/min Est GFR ( Amer) 67.2 ml/min Est GFR (Non-Af Amer) 58.0 ml/min BUN/Creatinine Ratio 15.8 (10-20) Glucose 114 H (70-99(Fasting)) mg/dl POC Glucose (other) (70-99) mg/dl Lactate 0.8 (0.4-2.0) mmol/L Calcium 9.3 (8.6-10.3) mg/dl POC Ioniz Calcium Tara (1.12-1.32) mmol/l Phosphorus 2.4 L (2.5-4.9) mg/dl Magnesium 1.9 (1.7-2.4) mg/dl Total Bilirubin 0.4 (0.2-1.0) mg/dl Direct Bilirubin 0.1 (0-0.2) mg/dl AST 35 (13-39) U/L ALT 26 (7-52) U/L Alkaline Phosphatase 88 (34-104) U/L Troponin I High Sens 3.6 (0-14) pg/ml Total Protein 8.6 H (6.0-8.3) gm/dl Albumin 4.8 (3.4-5.0) gm/dl Procalcitonin (0-0.5) ng/ml Urine Color Urine Appearance (Clear) Urine pH (4.5-7.5) Ur Specific Austin (1.000-1.030) Urine Protein (Negative) Urine Glucose (UA) (Negative) Urine Ketones (Negative) Urine Blood (Negative) Urine Nitrite (Negative) Urine Bilirubin (Negative) Urine Urobilinogen (Negative) Ur Leukocyte Esterase (Negative) Urine WBC (Auto) (0-5) /hpf Urine RBC (Auto) (0-4) /hpf U Hyaline Cast (Auto) (0-5) /lpf U Epithel Cells (Auto) (0-5) /lpf Urine Bacteria (Auto) (Negative) Adenovirus (PCR) (NotDetected) B. pertussis DNA (PCR) (NotDetected) B.parapertussis DNA PCR (NotDetected) C. pneumoniae DNA (PCR) (NotDetected) Coronavirus OC43 (PCR) (NotDetected) Coronavirus HKU1 (PCR) (NotDetected) Coronavirus 229E (PCR) (NotDetected) SARS-CoV-2 (PCR) (NotDetected) Coronavirus NL63 (PCR) (NotDetected) Human Metapneumovir PCR (NotDetected) Influenza Type A (PCR) (NotDetected) Influenza Type B (PCR) (NotDetected) M. pneumoniae (PCR) (NotDetected) Parainfluenza 1 (PCR) (NotDetected) Parainfluenza 2 (PCR) (NotDetected) Parainfluenza 3 (PCR) (NotDetected) Parainfluenza 4 (PCR) (NotDetected) RSV (PCR) (NotDetected) Entero/Rhino (PCR) (NotDetected) 06/29/23 06/29/23 06/29/23 Range/Units 21:45 21:45 21:52 WBC (4.8-10.8) K/ul RBC (4.20-5.40) M/uL Hgb (12.0-16.0) g/dl POC Hgb 14.6 (12.0-16.0) g/dl Hct (37.0-47.0) % POC Hct 43 (37-47) % MCV (80.0-100.0) fL MCH (25.0-34.0) pg MCHC (32.0-36.0) g/dL RDW Std Deviation (36.4-46.3) fL RDW Coeff of Hernan (11.5-14.5) % Plt Count (130-400) K/uL MPV (9.4-12.4) fL Immature Gran % (Auto) % Neut % (Auto) % Lymph % (Auto) % Hamblen % (Auto) % Eos % (Auto) % Baso % (Auto) % Neut # (Auto) (1.40-6.50) K/uL Lymph # (Auto) (1.20-3.40) K/uL Hamblen # (Auto) (0.11-0.59) K/uL Eos # (Auto) (0.00-0.50) K/uL Baso # (Auto) (0.00-0.20) K/uL Immature Gran # (Auto) (0.01-0.20) K/uL POC Sodium 134 L (135-144) mmol/L Sodium (136-145) mmol/L POC Potassium 4.0 (3.3-5.0) mmol/L Potassium (3.5-5.1) mmol/L POC Chloride 95 L (101-112) mmol/L Chloride (98-107) mmol/L Carbon Dioxide (21-32) mmol/L POC Total CO2 29 (24-31) mmol/L Anion Gap (3-11) POC Anion Gap 16.0 (16-25) mmol/L POC BUN 15 (7-18) mg/dl BUN (6-23) mg/dl Creatinine (0.6-1.2) mg/dl POC Creatinine 1.0 (0.6-1.3) mg/dl Est Cr Clr Drug Dosing ml/min Est GFR ( Amer) ml/min Est GFR (Non-Af Amer) ml/min BUN/Creatinine Ratio (10-20) Glucose (70-99(Fasting)) mg/dl POC Glucose (other) 112 H (70-99) mg/dl Lactate (0.4-2.0) mmol/L Calcium (8.6-10.3) mg/dl POC Ioniz Calcium Tara 1.14 (1.12-1.32) mmol/l Phosphorus (2.5-4.9) mg/dl Magnesium (1.7-2.4) mg/dl Total Bilirubin (0.2-1.0) mg/dl Direct Bilirubin (0-0.2) mg/dl AST (13-39) U/L ALT (7-52) U/L Alkaline Phosphatase (34-104) U/L Troponin I High Sens (0-14) pg/ml Total Protein (6.0-8.3) gm/dl Albumin (3.4-5.0) gm/dl Procalcitonin 0.09 (0-0.5) ng/ml Urine Color Urine Appearance (Clear) Urine pH (4.5-7.5) Ur Specific Austin (1.000-1.030) Urine Protein (Negative) Urine Glucose (UA) (Negative) Urine Ketones (Negative) Urine Blood (Negative) Urine Nitrite (Negative) Urine Bilirubin (Negative) Urine Urobilinogen (Negative) Ur Leukocyte Esterase (Negative) Urine WBC (Auto) (0-5) /hpf Urine RBC (Auto) (0-4) /hpf U Hyaline Cast (Auto) (0-5) /lpf U Epithel Cells (Auto) (0-5) /lpf Urine Bacteria (Auto) (Negative) Adenovirus (PCR) Not Detected (NotDetected) B. pertussis DNA (PCR) Not Detected (NotDetected) B.parapertussis DNA PCR Not Detected (NotDetected) C. pneumoniae DNA (PCR) Not Detected (NotDetected) Coronavirus OC43 (PCR) Not Detected (NotDetected) Coronavirus HKU1 (PCR) Not Detected (NotDetected) Coronavirus 229E (PCR) Not Detected (NotDetected) SARS-CoV-2 (PCR) DETECTED A* (NotDetected) Coronavirus NL63 (PCR) Not Detected (NotDetected) Human Metapneumovir PCR Not Detected (NotDetected) Influenza Type A (PCR) Not Detected (NotDetected) Influenza Type B (PCR) Not Detected (NotDetected) M. pneumoniae (PCR) Not Detected (NotDetected) Parainfluenza 1 (PCR) Not Detected (NotDetected) Parainfluenza 2 (PCR) Not Detected (NotDetected) Parainfluenza 3 (PCR) Not Detected (NotDetected) Parainfluenza 4 (PCR) Not Detected (NotDetected) RSV (PCR) Not Detected (NotDetected) Entero/Rhino (PCR) Not Detected (NotDetected) 06/29/23 Range/Units 22:20 WBC (4.8-10.8) K/ul RBC (4.20-5.40) M/uL Hgb (12.0-16.0) g/dl POC Hgb (12.0-16.0) g/dl Hct (37.0-47.0) % POC Hct (37-47) % MCV (80.0-100.0) fL MCH (25.0-34.0) pg MCHC (32.0-36.0) g/dL RDW Std Deviation (36.4-46.3) fL RDW Coeff of Hernan (11.5-14.5) % Plt Count (130-400) K/uL MPV (9.4-12.4) fL Immature Gran % (Auto) % Neut % (Auto) % Lymph % (Auto) % Hamblen % (Auto) % Eos % (Auto) % Baso % (Auto) % Neut # (Auto) (1.40-6.50) K/uL Lymph # (Auto) (1.20-3.40) K/uL Hamblen # (Auto) (0.11-0.59) K/uL Eos # (Auto) (0.00-0.50) K/uL Baso # (Auto) (0.00-0.20) K/uL Immature Gran # (Auto) (0.01-0.20) K/uL POC Sodium (135-144) mmol/L Sodium (136-145) mmol/L POC Potassium (3.3-5.0) mmol/L Potassium (3.5-5.1) mmol/L POC Chloride (101-112) mmol/L Chloride (98-107) mmol/L Carbon Dioxide (21-32) mmol/L POC Total CO2 (24-31) mmol/L Anion Gap (3-11) POC Anion Gap (16-25) mmol/L POC BUN (7-18) mg/dl BUN (6-23) mg/dl Creatinine (0.6-1.2) mg/dl POC Creatinine (0.6-1.3) mg/dl Est Cr Clr Drug Dosing ml/min Est GFR ( Amer) ml/min Est GFR (Non-Af Amer) ml/min BUN/Creatinine Ratio (10-20) Glucose (70-99(Fasting)) mg/dl POC Glucose (other) (70-99) mg/dl Lactate (0.4-2.0) mmol/L Calcium (8.6-10.3) mg/dl POC Ioniz Calcium Tara (1.12-1.32) mmol/l Phosphorus (2.5-4.9) mg/dl Magnesium (1.7-2.4) mg/dl Total Bilirubin (0.2-1.0) mg/dl Direct Bilirubin (0-0.2) mg/dl AST (13-39) U/L ALT (7-52) U/L Alkaline Phosphatase (34-104) U/L Troponin I High Sens (0-14) pg/ml Total Protein (6.0-8.3) gm/dl Albumin (3.4-5.0) gm/dl Procalcitonin (0-0.5) ng/ml Urine Color Yellow Urine Appearance Clear (Clear) Urine pH 8.5 H (4.5-7.5) Ur Specific Austin 1.013 (1.000-1.030) Urine Protein Negative (Negative) Urine Glucose (UA) Negative (Negative) Urine Ketones Negative (Negative) Urine Blood 1+ H (Negative) Urine Nitrite Negative (Negative) Urine Bilirubin Negative (Negative) Urine Urobilinogen Negative (Negative) Ur Leukocyte Esterase Negative (Negative) Urine WBC (Auto) 0 (0-5) /hpf Urine RBC (Auto) 5-10 H (0-4) /hpf U Hyaline Cast (Auto) 0 (0-5) /lpf U Epithel Cells (Auto) 5-10 H (0-5) /lpf Urine Bacteria (Auto) Negative (Negative) Adenovirus (PCR) (NotDetected) B. pertussis DNA (PCR) (NotDetected) B.parapertussis DNA PCR (NotDetected) C. pneumoniae DNA (PCR) (NotDetected) Coronavirus OC43 (PCR) (NotDetected) Coronavirus HKU1 (PCR) (NotDetected) Coronavirus 229E (PCR) (NotDetected) SARS-CoV-2 (PCR) (NotDetected) Coronavirus NL63 (PCR) (NotDetected) Human Metapneumovir PCR (NotDetected) Influenza Type A (PCR) (NotDetected) Influenza Type B (PCR) (NotDetected) M. pneumoniae (PCR) (NotDetected) Parainfluenza 1 (PCR) (NotDetected) Parainfluenza 2 (PCR) (NotDetected) Parainfluenza 3 (PCR) (NotDetected) Parainfluenza 4 (PCR) (NotDetected) RSV (PCR) (NotDetected) Entero/Rhino (PCR) (NotDetected) Administered Medications Discontinued Medications Acetaminophen (Acetaminophen 325 Mg Tab) 650 mg PO Q4H PRN PRN Reason: pain or fever Stop: 07/30/23 02:00 Last Admin: 06/30/23 12:30 Dose: 650 mg Documented By: APURVA Albuterol (Albut/Ipratrop 3mg/0.5mg Neb 3 Ml Vial) 3 ml NEB NOW STA; Protocol Stop: 06/29/23 22:08 Last Admin: 06/29/23 22:18 Dose: 3 ml Documented By: IVORY Enoxaparin Sodium (Enoxaparin Inj 40 Mg/0.4 Ml Syr) 40 mg SQ QAM BILLY Stop: 07/30/23 08:59 Last Admin: 07/01/23 09:19 Dose: Not Given Documented By: Admin: 06/30/23 08:46 Dose: Not Given Documented By: APURVA Sodium Chloride (Nss 1000ml) 500 mls @ 999 mls/hr IV .Q31M BILLY Stop: 06/29/23 22:30 Last Infusion: 06/29/23 22:50 Dose: 0 mls/hr Documented By: Admin: 06/29/23 22:03 Dose: 999 mls/hr Documented By: ELISABET Sodium Chloride (Nss 1000ml) 1,000 mls @ 999 mls/hr IV .Q1H1M BILLY Stop: 06/30/23 00:00 Last Infusion: 06/30/23 01:40 Dose: 0 mls/hr Documented By: Admin: 06/30/23 00:19 Dose: 999 mls/hr Documented By: Infusion: 06/30/23 00:17 Dose: 0 mls/hr Documented By: Admin: 06/29/23 22:04 Dose: 999 mls/hr Documented By: ELISABET Cefepime HCl (Maxipime) 2,000 mg in 20 mls @ 5 mls/min IV NOW STA; Protocol Stop: 06/29/23 21:54 Last Admin: 06/29/23 22:03 Dose: 5 mls/min Documented By: ELISABET Dexamethasone 6 mg/ Syringe 1.5 mls @ 1 mls/min IV Q24H BILLY Stop: 07/30/23 08:59 Last Admin: 07/01/23 09:13 Dose: 1 mls/min Documented By: Admin: 06/30/23 08:42 Dose: 1 mls/min Documented By: APURVA Remdesivir 200 mg/ Sodium (Chloride) 250 mls @ 125 mls/hr IV ONE STA; Protocol Stop: 06/30/23 04:07 Last Infusion: 06/30/23 04:49 Dose: 0 mls/hr Documented By: Admin: 06/30/23 02:40 Dose: 125 mls/hr Documented By: SYDNEE Ibuprofen (Ibuprofen 600 Mg Tab) 600 mg PO Q8H PRN PRN Reason: Pain or Fever Stop: 07/30/23 02:00 Last Admin: 06/30/23 12:31 Dose: 600 mg Documented By: APURVA Ioversol (Optiray 320 100ml) 93 ml IV ONCE ONE Stop: 06/29/23 22:41 Last Admin: 06/29/23 22:42 Dose: 93 ml Documented By: FLIP Ketorolac Tromethamine (Ketorolac Tromethamine 15 Mg/Ml Vial) 10 mg IV NOW ONE Stop: 06/29/23 21:52 Last Admin: 06/29/23 22:03 Dose: 10 mg Documented By: ELISABET Levothyroxine Sodium (Levothyroxine Sodium 50 Mcg Tablet) 50 mcg PO DAILYBB BILLY Stop: 07/30/23 06:29 Last Admin: 07/01/23 05:58 Dose: 50 mcg Documented By: Admin: 06/30/23 06:23 Dose: 50 mcg Documented By: SYDNEE Methylprednisolone (Methylprednisolone 125 Mg/2 Ml Vial) 60 mg IV NOW STA Stop: 06/29/23 22:08 Last Admin: 06/29/23 22:18 Dose: 60 mg Documented By: IVORY Ondansetron HCl (Ondansetron Inj 2 Mg/Ml 2 Ml Vial) 4 mg IV NOW STA Stop: 06/29/23 21:52 Last Admin: 06/29/23 22:03 Dose: 4 mg Documented By: ELISABET Ondansetron HCl (Ondansetron Inj 2 Mg/Ml 2 Ml Vial) 4 mg IV Q6H PRN PRN Reason: Nausea Stop: 07/30/23 02:00 Last Admin: 06/30/23 02:40 Dose: 4 mg Documented By: SYDNEE Pantoprazole Sodium (Pantoprazole 40 Mg Tab) 40 mg PO DAILY BILLY Stop: 07/30/23 08:59 Last Admin: 07/01/23 09:13 Dose: 40 mg Documented By: Admin: 06/30/23 08:42 Dose: 40 mg Documented By: APURVA Imaging Data Radiologist's Impression: Abdomen/Pelvis CT 06/29/23 21:51 Exam(s): CT ABDOMEN + PELVIS With Contrast IV Amt: 92 ml opti 320 EXAM: CT Abdomen and Pelvis With Intravenous Contrast CLINICAL HISTORY: Reason for exam: L flank pain. TECHNIQUE: Axial computed tomography images of the abdomen and pelvis with intravenous contrast. CTDI is 14 mGy and DLP is 683.06 mGy-cm. Automated exposure control was utilized for the study. A dose lowering technique was utilized adhering to the principles of ALARA. CONTRAST: Patient received 92 ml opti 320 of IV contrast COMPARISON: No relevant prior studies available. FINDINGS: Lung bases: Unremarkable. No mass. No consolidation. ABDOMEN: Liver: Hepatic steatosis. Gallbladder and bile ducts: Unremarkable. No calcified stones. No ductal dilation. Pancreas: Unremarkable. No mass. No ductal dilation. Spleen: Unremarkable. No splenomegaly. Adrenals: Unremarkable. No mass. Kidneys and ureters: Nonobstructing 3 mm LEFT upper pole renal calculus. No hydronephrosis or delayed nephrogram. Stomach and bowel: Diverticulosis, without acute diverticulitis. No small bowel obstruction. No free air. PELVIS: Appendix: No findings to suggest acute appendicitis. Bladder: Unremarkable. No mass. Reproductive: Unremarkable as visualized. ABDOMEN and PELVIS: Intraperitoneal space: See above. Bones/joints: Degenerative changes of the spine. No acute fracture. No dislocation. Soft tissues: Unremarkable. Vasculature: Atherosclerotic changes of the aorta. No abdominal aortic aneurysm. Lymph nodes: Unremarkable. No enlarged lymph nodes. IMPRESSION: 1. Hepatic steatosis. 2. Nonobstructing 3 mm LEFT upper pole renal calculus. 3. Diverticulosis, without acute diverticulitis. No small bowel obstruction. No free air. Electronically signed by: Javier Paul MD 06/30/23 00:22 AM Chest X-Ray 06/29/23 21:51 XR chest 1V portable CLINICAL HISTORY: Sepsis. COMPARISON STUDY: Chest radiograph August 11, 2021. Chest CT October 20, 2021.. FINDINGS: There is no pneumothorax or pleural effusion. Cardiac size is normal. No definite evidence for pulmonary edema. Linear right perihilar opacity favors atelectasis. No consolidation to stress pneumonia. IMPRESSION: No acute cardiopulmonary findings. ACT 112: Negative or not required by law. Electronically signed by: Drake Justin M.D. 06/30/2023 6:55 AM Discharge Plan Visit Data Chief Complaint: Altered Mental Status Stated Complaint: NAUSEA, CONFUSION ED Provider: Ti Locke Discharge Problem: Acute hypoxemic respiratory failure due to COVID-19, Hyponatremia Patient Disposition: Admitted As Inpatient Discharge Instructions Interventions: ED Discharge Assessment Last Done: 06/30/23 01:35
[2023-06-29 22:36] LABS: Basophils # (auto) 0.02 K/uL (0.00-0.20); Basophils % (auto) 0.5 %; Hematocrit (blood only) 39.1 % (37.0-47.0); Hemoglobin 13.5 g/dl (12.0-16.0); Immature Granulocytes # (auto) 0.01 K/uL (0.01-0.20); Immature Granulocytes % (auto) 0.3 %; Lymphocytes # (auto) 0.39 K/uL (1.20-3.40); Lymphocytes % (auto) 10.7 %; Mean Corpuscular Hemoglobin 30.9 pg (25.0-34.0); Mean Corpuscular Hgb Conc 34.5 g/dL (32.0-36.0); Mean Corpuscular Volume 89.5 fL (80.0-100.0); Mean Platelet Volume 8.6 fL (9.4-12.4); Monocytes % (auto) 8.2 %; Neutrophils # (auto) 2.92 K/uL (1.40-6.50); Neutrophils % (auto) 80.3 %; Platelet Count 242 K/uL (130-400); RDW Coefficient of Variation 13.3 % (11.5-14.5); RDW Standard Deviation 43.6 fL (36.4-46.3); Red Blood Count 4.37 M/uL (4.20-5.40); White Blood Count 3.64 K/ul (4.8-10.8)
[2023-06-29] MEDS ORDERED: OPTIRAY 320 100ml IV ONE (22:40)
[2023-06-29 22:41] LABS: Albumin Level 4.8 gm/dl (3.4-5.0); BUN Creatinine Ratio 15.8 (10-20); Bilirubin Direct 0.1 mg/dl (0-0.2); Bilirubin,Total 0.4 mg/dl (0.2-1.0); Calcium 9.3 mg/dl (8.6-10.3); Creatinine Clr Calc Pharmacy 57.3 ml/min; Est GFR (African American) 67.2 ml/min; Magnesium 1.9 mg/dl (1.7-2.4); Potassium 3.9 mmol/L (3.5-5.1); Total Protein 8.6 gm/dl (6.0-8.3)
[2023-06-29 22:48] LABS: Troponin I High Sensitivity 3.6 pg/ml (0-14)
[2023-06-29 22:56] LABS: Appearance Urine Clear (Clear); Bacteria Urine Automated Negative (Negative); Bilirubin Urine Negative (Negative); Blood Urine 1+ (Negative); Cast Urine Automated 0 /lpf (0-5); Color Urine Yellow; Glucose Urine UA Negative (Negative); Ketones Urine Negative (Negative); Leukocyte Esterase Urine Negative (Negative); Nitrite Urine Negative (Negative); Protein Urine Negative (Negative); Specific Gravity Urine 1.013 (1.000-1.030); Urobilinogen Urine Negative (Negative); WBC Urine Automated 0 /hpf (0-5); pH Urine 8.5 (4.5-7.5)
[2023-06-29 22:56] LABS: Adenovirus PCR Not Detected (NotDetected); Bordetella parapertussis PCR Not Detected (NotDetected); Bordetella pertussis PCR Not Detected (NotDetected); Chlamydia pneumoniae PCR Not Detected (NotDetected); Coronavirus 229E PCR Not Detected (NotDetected); Coronavirus HKU1 PCR Not Detected (NotDetected); Coronavirus NL63 PCR Not Detected (NotDetected); Coronavirus OC43PCR Not Detected (NotDetected); Human Metapneumovirus PCR Not Detected (NotDetected); Influenza A PCR Not Detected (NotDetected); Influenza B PCR Not Detected (NotDetected); Mycoplasma pneumoniae PCR Not Detected (NotDetected); Parainfluenza Virus 1 PCR Not Detected (NotDetected); Parainfluenza Virus 2 PCR Not Detected (NotDetected); Parainfluenza Virus 3 PCR Not Detected (NotDetected); Parainfluenza Virus 4 PCR Not Detected (NotDetected); Respiratory Syncytial VirusPCR Not Detected (NotDetected); Rhinovirus/Enterovirus PCR Not Detected (NotDetected)
[2023-06-29 23:46] LABS: Coronavirus CoV-2 (COVID19)PCR DETECTED (NotDetected)
[2023-06-30] MEDS: SODIUM CHLORIDE 0.9% 1,000 ML IV SCH (00:19)
--- NOTE | 2023-06-30 00:22 | CT Scan Report ---
Exam(s): CT ABDOMEN + PELVIS With Contrast IV Amt: 92 ml opti 320 EXAM: CT Abdomen and Pelvis With Intravenous Contrast CLINICAL HISTORY: Reason for exam: L flank pain. TECHNIQUE: Axial computed tomography images of the abdomen and pelvis with intravenous contrast. CTDI is 14 mGy and DLP is 683.06 mGy-cm. Automated exposure control was utilized for the study. A dose lowering technique was utilized adhering to the principles of ALARA. CONTRAST: Patient received 92 ml opti 320 of IV contrast COMPARISON: No relevant prior studies available. FINDINGS: Lung bases: Unremarkable. No mass. No consolidation. ABDOMEN: Liver: Hepatic steatosis. Gallbladder and bile ducts: Unremarkable. No calcified stones. No ductal dilation. Pancreas: Unremarkable. No mass. No ductal dilation. Spleen: Unremarkable. No splenomegaly. Adrenals: Unremarkable. No mass. Kidneys and ureters: Nonobstructing 3 mm LEFT upper pole renal calculus. No hydronephrosis or delayed nephrogram. Stomach and bowel: Diverticulosis, without acute diverticulitis. No small bowel obstruction. No free air. PELVIS: Appendix: No findings to suggest acute appendicitis. Bladder: Unremarkable. No mass. Reproductive: Unremarkable as visualized. ABDOMEN and PELVIS: Intraperitoneal space: See above. Bones/joints: Degenerative changes of the spine. No acute fracture. No dislocation. Soft tissues: Unremarkable. Vasculature: Atherosclerotic changes of the aorta. No abdominal aortic aneurysm. Lymph nodes: Unremarkable. No enlarged lymph nodes. IMPRESSION: 1. Hepatic steatosis. 2. Nonobstructing 3 mm LEFT upper pole renal calculus. 3. Diverticulosis, without acute diverticulitis. No small bowel obstruction. No free air. Electronically signed by: Javier Paul MD 06/30/23 00:22 AM
--- NOTE | 2023-06-30 00:29 | History & Physical Report ---
Date of Service June 30, 2023 Assessment & Plan (1) COVID-19: Plan: 68yo female presenting with headache, nausea and back/flank pain x 1-2 days. Found to be POSITIVE for Covid-19 infection. Patient febrile, tachycardic and hypoxic in the ER to 87% on room air. -Admit to medical -Maintain isolation precautions -Supplemental O2 as needed -Dexamethasone 6mg IV daily -Remdesivir per protocol -Tylenol and Ibuprofen PRN -Albuterol PRN -Zofran PRN -Lovenox for DVT prophylaxis -Repeat labs in AM - CBC, BMP, LFTs (2) Hypothyroidism: Plan: Chronic. Stable dose of Synthroid -Continue Synthroid 50mcg po daily (3) GERD (gastroesophageal reflux disease): Plan: Chronic. Stable -Protonix 40mg po daily while admitted F/E/N - Heplock. Mild hyponatremia in setting of Covid-19 infection, repeat labs in AM, check PO4, regular diet as tolerated Ppx - Lovenox Code - Full per discussion with patient Dispo - Admit to medical History of Present Illness Chief Complaint: Covid-19, hypoxia Primary Care Provider: NO PCP Salud Godinez is a pleasant 68yo female presenting with complaint of headache, abdominal pain and nausea ongoing x 1-2 days. Patient reports she has had a s evere headache for the last day. She has also had ongoing nausea as well as pain in the left flank and bilateral groin. No complaint of fever, chills, cough or SOB. No complaint of diarrhea, chest pain or urinary issues. In the ER patient hypoxic to 87% on room air. No use of supplemental O2 at home. Found to be POSITIVE for Covid-19 Patient has received her vaccination series + booster. Has not had Covid-19 before to her knowledge. ER Course: Cefepime 2gm Albuterol 3mL neb Toradol 10mg IV Solumedrol 60mg IV Zofran 4mg IV NSS x 2.5L Allergies Allergy/AdvReac Type Severity Reaction Status Date / Time amoxicillin [From Augmentin] Allergy Intermediate I BROKE Verified 04/05/23 21:52 OUT-HIVES clavulanic acid Allergy Intermediate I BROKE Verified 04/05/23 21:52 [From Augmentin] OUT-HIVES Penicillins Allergy Intermediate Hives Verified 04/05/23 21:52 Home Medications Medication Instructions Recorded Confirmed Type levothyroxine 50 mcg tablet 50 mcg PO DAILYBB 04/05/23 06/29/23 History omeprazole 20 mg capsule,delayed 20 mg PO DAILYBB 04/05/23 06/29/23 History release Past Med/Surg History Medical History (Updated 06/30/23 @ 00:24 by Karina Villagomez DO) Anxiety and depression Degenerative disc disease Hx of supraventricular tachycardia Hypothyroidism Migraine HX MIGRAINES Osteoarthritis Spinal stenosis Surgical History Fusion of spine LUMBAR H/O cardiac radiofrequency ablation BY DR. BANERJEE AT [facility] H/O vitrectomy LEFT H/O: hysterectomy 2009 History of bilateral tubal ligation History of colonoscopy History of esophagogastroduodenoscopy (EGD) History of eye surgery LEFT LASER A FEW WEEKS AGO History of left cataract surgery History of tooth extraction Family History Grandfather (Paternal) Cancer Uncle Cancer Grandfather (Paternal) Colorectal cancer Other Hypertension Social History Smoking Status: Unknown if ever smoked Tobacco Type: Cigarettes Cigarettes Per Day: 10; Second Hand Exposure: No; Do You Dip or Chew Tobacco: No; Hx Alcohol Use: No Hx Substance Use: No Preferred Language: Angolan 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: No Beliefs That Will Affect Care: None marital status: / Current Living Situation: Alone current occupational status: retired and disabled Feels Safe at Home: Yes Assistive Devices: Denture - Upper, Denture - Lower and Other Review of Systems Review of Systems: All systems reviewed & are unremarkable except as noted in HPI & below Physical Exam Physical Exam: General: patient resting comfortably, NAD, non-toxic in appearance, AA&O x 4, NC in place Skin: warm, dry, intact, no rashes or lesions HEENT: NC/AT, PERRL, EOMI, anicteric sclera, conjunctiva without injection, external ear normal to inspection and nontender, nares patent, moist mucus membranes, edentulous, no oropharyngeal lesions, neck supple, trachea midline, no LAD, no thyromegaly, no JVD Heart: +S1/S2, regular, tachycardic, no m/r/g Lungs: equal air entry bilaterally, no rales/rhonchi/wheezes Abd: +BS, soft, NT/ND, no masses/organomegaly/ascites Ext: warm, 2+ pulses in UE/LE bilaterally, no clubbing/cyanosis or edema Neuro: nonfocal, patient AA&O x 4, speech intact, no facial droop, moving all extremities on command with equal strength 5/5 Results & Data Results & Data Vital Signs (Past 12 Hours) Vital Signs Temp Pulse Resp BP Pulse Ox O2 Del Method O2 Flow Rate 06/29/23 22:20 115 H 15 06/29/23 22:10 99 H 19 98 06/29/23 22:00 100 H 15 99 06/29/23 22:00 145/77 H 06/29/23 21:51 97 H 15 98 06/29/23 21:51 145/69 H 06/29/23 21:50 103 H 17 97 06/29/23 21:40 99 H 17 96 06/29/23 21:31 103 H 15 94 06/29/23 21:30 151/90 H 06/29/23 21:31 103 H 06/29/23 21:55 96 Nasal Cannula 3 06/29/23 21:36 87 L Room Air 0 06/29/23 21:36 39 C H 101 H 22 151/90 H 87 L Room Air Laboratory Results Laboratory Results WBC 3.64 K/ul (4.8-10.8) L 06/29/23 21:45 RBC 4.37 M/uL (4.20-5.40) 06/29/23 21:45 Hgb 13.5 g/dl (12.0-16.0) 06/29/23 21:45 POC Hgb 14.6 g/dl (12.0-16.0) 06/29/23 21:52 Hct 39.1 % (37.0-47.0) 06/29/23 21:45 POC Hct 43 % (37-47) 06/29/23 21:52 MCV 89.5 fL (80.0-100.0) 06/29/23 21:45 MCH 30.9 pg (25.0-34.0) 06/29/23 21:45 MCHC 34.5 g/dL (32.0-36.0) 06/29/23 21:45 RDW Std Deviation 43.6 fL (36.4-46.3) 06/29/23 21:45 RDW Coeff of Hernan 13.3 % (11.5-14.5) 06/29/23 21:45 Plt Count 242 K/uL (130-400) 06/29/23 21:45 MPV 8.6 fL (9.4-12.4) L 06/29/23 21:45 Immature Gran % (Auto) 0.3 % 06/29/23 21:45 Neut % (Auto) 80.3 % 06/29/23 21:45 Lymph % (Auto) 10.7 % 06/29/23 21:45 [place] % (Auto) 8.2 % 06/29/23 21:45 Eos % (Auto) 0.0 % 06/29/23 21:45 Baso % (Auto) 0.5 % 06/29/23 21:45 Neut # (Auto) 2.92 K/uL (1.40-6.50) 06/29/23 21:45 Lymph # (Auto) 0.39 K/uL (1.20-3.40) L 06/29/23 21:45 [place] # (Auto) 0.30 K/uL (0.11-0.59) 06/29/23 21:45 Eos # (Auto) 0.00 K/uL (0.00-0.50) 06/29/23 21:45 Baso # (Auto) 0.02 K/uL (0.00-0.20) 06/29/23 21:45 Immature Gran # (Auto) 0.01 K/uL (0.01-0.20) 06/29/23 21:45 POC Sodium 134 mmol/L (135-144) L 06/29/23 21:52 Sodium 133 mmol/L (136-145) L 06/29/23 21:45 POC Potassium 4.0 mmol/L (3.3-5.0) 06/29/23 21:52 Potassium 3.9 mmol/L (3.5-5.1) 06/29/23 21:45 POC Chloride 95 mmol/L (101-112) L 06/29/23 21:52 Chloride 96 mmol/L (98-107) L 06/29/23 21:45 Carbon Dioxide 29 mmol/L (21-32) 06/29/23 21:45 POC Total CO2 29 mmol/L (24-31) 06/29/23 21:52 Anion Gap 8 (3-11) 06/29/23 21:45 POC Anion Gap 16.0 mmol/L (16-25) 06/29/23 21:52 POC BUN 15 mg/dl (7-18) 06/29/23 21:52 BUN 16 mg/dl (6-23) 06/29/23 21:45 Creatinine 1.01 mg/dl (0.6-1.2) 06/29/23 21:45 POC Creatinine 1.0 mg/dl (0.6-1.3) 06/29/23 21:52 Est Cr Clr Drug Dosing 57.3 ml/min 06/29/23 21:45 Est GFR ( Amer) 67.2 ml/min 06/29/23 21:45 Est GFR (Non-Af Amer) 58.0 ml/min 06/29/23 21:45 BUN/Creatinine Ratio 15.8 (10-20) 06/29/23 21:45 Glucose 114 mg/dl (70-99(Fasting)) H 06/29/23 21:45 POC Glucose (other) 112 mg/dl (70-99) H 06/29/23 21:52 Lactate 0.8 mmol/L (0.4-2.0) 06/29/23 21:45 Calcium 9.3 mg/dl (8.6-10.3) 06/29/23 21:45 POC Ioniz Calcium Tara 1.14 mmol/l (1.12-1.32) 06/29/23 21:52 Magnesium 1.9 mg/dl (1.7-2.4) 06/29/23 21:45 Total Bilirubin 0.4 mg/dl (0.2-1.0) 06/29/23 21:45 Direct Bilirubin 0.1 mg/dl (0-0.2) 06/29/23 21:45 AST 35 U/L (13-39) 06/29/23 21:45 ALT 26 U/L (7-52) 06/29/23 21:45 Alkaline Phosphatase 88 U/L (34-104) 06/29/23 21:45 Troponin I High Sens 3.6 pg/ml (0-14) 06/29/23 21:45 Total Protein 8.6 gm/dl (6.0-8.3) H 06/29/23 21:45 Albumin 4.8 gm/dl (3.4-5.0) 06/29/23 21:45 Procalcitonin 0.09 ng/ml (0-0.5) 06/29/23 21:45 Urine Color Yellow 06/29/23 22:20 Urine Appearance Clear (Clear) 06/29/23 22:20 Urine pH 8.5 (4.5-7.5) H 06/29/23 22:20 Ur Specific [place] 1.013 (1.000-1.030) 06/29/23 22:20 Urine Protein Negative (Negative) 06/29/23 22:20 Urine Glucose (UA) Negative (Negative) 06/29/23 22:20 Urine Ketones Negative (Negative) 06/29/23 22:20 Urine Blood 1+ (Negative) H 06/29/23 22:20 Urine Nitrite Negative (Negative) 06/29/23 22:20 Urine Bilirubin Negative (Negative) 06/29/23 22:20 Urine Urobilinogen Negative (Negative) 06/29/23 22:20 Ur Leukocyte Esterase Negative (Negative) 06/29/23 22:20 Urine WBC (Auto) 0 /hpf (0-5) 06/29/23 22:20 Urine RBC (Auto) 5-10 /hpf (0-4) H 06/29/23 22:20 U Hyaline Cast (Auto) 0 /lpf (0-5) 06/29/23 22:20 U Epithel Cells (Auto) 5-10 /lpf (0-5) H 06/29/23 22:20 Urine Bacteria (Auto) Negative (Negative) 06/29/23 22:20 Adenovirus (PCR) Not Detected (NotDetected) 06/29/23 21:45 B. pertussis DNA (PCR) Not Detected (NotDetected) 06/29/23 21:45 B.parapertussis DNA PCR Not Detected (NotDetected) 06/29/23 21:45 C. pneumoniae DNA (PCR) Not Detected (NotDetected) 06/29/23 21:45 Coronavirus OC43 (PCR) Not Detected (NotDetected) 06/29/23 21:45 Coronavirus HKU1 (PCR) Not Detected (NotDetected) 06/29/23 21:45 Coronavirus 229E (PCR) Not Detected (NotDetected) 06/29/23 21:45 SARS-CoV-2 (PCR) DETECTED (NotDetected) A* 06/29/23 21:45 Coronavirus NL63 (PCR) Not Detected (NotDetected) 06/29/23 21:45 Human Metapneumovir PCR Not Detected (NotDetected) 06/29/23 21:45 Influenza Type A (PCR) Not Detected (NotDetected) 06/29/23 21:45 Influenza Type B (PCR) Not Detected (NotDetected) 06/29/23 21:45 M. pneumoniae (PCR) Not Detected (NotDetected) 06/29/23 21:45 Parainfluenza 1 (PCR) Not Detected (NotDetected) 06/29/23 21:45 Parainfluenza 2 (PCR) Not Detected (NotDetected) 06/29/23 21:45 Parainfluenza 3 (PCR) Not Detected (NotDetected) 06/29/23 21:45 Parainfluenza 4 (PCR) Not Detected (NotDetected) 06/29/23 21:45 RSV (PCR) Not Detected (NotDetected) 06/29/23 21:45 Entero/Rhino (PCR) Not Detected (NotDetected) 06/29/23 21:45 Impressions Abdomen/Pelvis CT 06/29/23 21:51 Exam(s): CT ABDOMEN + PELVIS With Contrast IV Amt: 92 ml opti 320 EXAM: CT Abdomen and Pelvis With Intravenous Contrast CLINICAL HISTORY: Reason for exam: L flank pain. TECHNIQUE: Axial computed tomography images of the abdomen and pelvis with intravenous contrast. CTDI is 14 mGy and DLP is 683.06 mGy-cm. Automated exposure control was utilized for the study. A dose lowering technique was utilized adhering to the principles of ALARA. CONTRAST: Patient received 92 ml opti 320 of IV contrast COMPARISON: No relevant prior studies available. FINDINGS: Lung bases: Unremarkable. No mass. No consolidation. ABDOMEN: Liver: Hepatic steatosis. Gallbladder and bile ducts: Unremarkable. No calcified stones. No ductal dilation. Pancreas: Unremarkable. No mass. No ductal dilation. Spleen: Unremarkable. No splenomegaly. Adrenals: Unremarkable. No mass. Kidneys and ureters: Nonobstructing 3 mm LEFT upper pole renal calculus. No hydronephrosis or delayed nephrogram. Stomach and bowel: Diverticulosis, without acute diverticulitis. No small bowel obstruction. No free air. PELVIS: Appendix: No findings to suggest acute appendicitis. Bladder: Unremarkable. No mass. Reproductive: Unremarkable as visualized. ABDOMEN and PELVIS: Intraperitoneal space: See above. Bones/joints: Degenerative changes of the spine. No acute fracture. No dislocation. Soft tissues: Unremarkable. Vasculature: Atherosclerotic changes of the aorta. No abdominal aortic aneurysm. Lymph nodes: Unremarkable. No enlarged lymph nodes. IMPRESSION: 1. Hepatic steatosis. 2. Nonobstructing 3 mm LEFT upper pole renal calculus. 3. Diverticulosis, without acute diverticulitis. No small bowel obstruction. No free air. Electronically signed by: Javier Paul MD 06/30/23 00:22 AM Code Status & VTE Plan VTE Prophylaxis Plan VTE Prophylaxis will be ordered: Yes PG Care Time/CCT Total # of Minutes Spent Total Time Spent with Patient: Total time spent is greater than 50% in coordination of care (as documented) at patient's floor/unit and/or counseling patient: Coding Level of Care Code 31849 INT INP/OBS CARE 2/55MIN Diagnoses COVID-19 U07.1 Hypothyroidism E03.9 GERD (gastroesophageal reflux disease) K21.9
[2023-06-30] MEDS ORDERED: IBUPROFEN 600 MG TAB PO PRN (02:01)
[2023-06-30] MEDS ORDERED: ACETAMINOPHEN 325 MG TAB PO PRN (02:01)
[2023-06-30] MEDS ORDERED: ALBUTEROL HFA 8 GM INHALER INH PRN (02:01)
[2023-06-30] MEDS ORDERED: ONDANSETRON INJ 2 MG/ML 2 ML VIAL IV PRN (02:01)
[2023-06-30] MEDS ORDERED: REMDESIVIR 200 MG in SODIUM CHLORIDE 0.9% 210 ML IV STA (02:08)
[2023-06-30 03:12] LABS: Phosphorus 2.4 mg/dl (2.5-4.9)
[2023-06-30] MEDS: LEVOTHYROXINE SODIUM 50 MCG TABLET PO SCH (06:23)
--- NOTE | 2023-06-30 06:56 | XRay Report ---
XR chest 1V portable CLINICAL HISTORY: Sepsis. COMPARISON STUDY: Chest radiograph August 11, 2021. Chest CT October 20, 2021.. FINDINGS: There is no pneumothorax or pleural effusion. Cardiac size is normal. No definite evidence for pulmonary edema. Linear right perihilar opacity favors atelectasis. No consolidation to stress pn eumonia. IMPRESSION: No acute cardiopulmonary findings. ACT 112: Negative or not required by law. Electronically signed by: Drake Justin M.D. 06/30/2023 6:55 AM
[2023-06-30] MEDS: dexAMETHasone 6 MG in SYRINGE 0 ML IV SCH (08:42)
[2023-06-30] MEDS: PANTOprazole 40 MG TAB PO SCH (08:42)
[2023-06-30] MEDS: ENOXAPARIN INJ 40 MG/0.4 ML SYR SQ SCH ×2 (08:43→08:46)
--- NOTE | 2023-06-30 15:51 | Electrocardiogram Report ---
Test Reason : Blood Pressure : / mmHG Vent. Rate : 100 BPM Atrial Rate : 100 BPM P-R Int : 154 ms QRS Dur : 080 ms QT Int : 338 ms P-R-T Axes : 068 054 056 degrees QTc Int : 436 ms Normal sinus rhythm Nonspecific ST abnormality Abnormal ECG When compared with ECG of 28-JUN-2021 14:30, No significant change was found Confirmed by Preston Boland ([id number]) on 06/30/2023 3:50:48 PM Referred By: REFERRED SELF Confirmed By:Preston Boland
[2023-07-01] MEDS: LEVOTHYROXINE SODIUM 50 MCG TABLET PO SCH (05:58)
[2023-07-01 06:35] LABS: Hematocrit (blood only) 34.1 % (37.0-47.0); Hemoglobin 11.6 g/dl (12.0-16.0); Mean Corpuscular Volume 91.2 fL (80.0-100.0); Mean Platelet Volume 8.7 fL (9.4-12.4); Platelet Count 225 K/uL (130-400); RDW Coefficient of Variation 13.8 % (11.5-14.5); RDW Standard Deviation 46.5 fL (36.4-46.3); Red Blood Count 3.74 M/uL (4.20-5.40); White Blood Count 6.44 K/ul (4.8-10.8)
[2023-07-01 07:05] LABS: Albumin Level 3.9 gm/dl (3.4-5.0); Bilirubin Direct 0.1 mg/dl (0-0.2); Bilirubin,Total 0.3 mg/dl (0.2-1.0); Creatinine Clr Calc Pharmacy 70.5 ml/min; Est GFR (African American) 86.4 ml/min; Est GFR (Non-African American) 74.6 ml/min; Potassium 4.2 mmol/L (3.5-5.1)
--- NOTE | 2023-07-01 09:06 | Discharge Summary ---
Discharge Summary Date of Service July 01, 2023 Admission HPI Per Admitting Provider Salud Godinez is a pleasant 68yo female presenting with complaint of headache, abdominal pain and nausea ongoing x 1-2 days. Patient reports she has had a severe headache for the last day. She has also had ongoing nausea as well as pain in the left flank and bilateral groin. No complaint of fever, chills, cough or SOB. No complaint of diarrhea, chest pain or urinary issues. In the ER patient hypoxic to 87% on room air. No use of supplemental O2 at home. Found to be POSITIVE for Covid-19 Patient has received her vaccination series + booster. Has not had Covid-19 before to her knowledge. ER Course: Cefepime 2gm Albuterol 3mL neb Toradol 10mg IV Solumedrol 60mg IV Zofran 4mg IV NSS x 2.5L Admission Exam Per Admitting Provider General: patient resting comfortably, NAD, non-toxic in appearance, AA&O x 4, NC in place Skin: warm, dry, intact, no rashes or lesions HEENT: NC/AT, PERRL, EOMI, anicteric sclera, conjunctiva without injection, external ear normal to inspection and nontender, nares patent, moist mucus membranes, edentulous, no oropharyngeal lesions, neck supple, trachea midline, no LAD, no thyromegaly, no JVD Heart: +S1/S2, regular, tachycardic, no m/r/g Lungs: equal air entry bilaterally, no rales/rhonchi/wheezes Abd: +BS, soft, NT/ND, no masses/organomegaly/ascites Ext: warm, 2+ pulses in UE/LE bilaterally, no clubbing/cyanosis or edema Neuro: nonfocal, patient AA&O x 4, speech intact, no facial droop, moving all extremities on command with equal strength 5/5 Principal Dx & Hospital Course #1 = Principal Diagnosis (1) COVID-19: 68yo female presenting with headache, nausea and back/flank pain x 1-2 days. Found to be POSITIVE for Covid-19 infection. Patient febrile, tachycardic and hypoxic in the ER to 87% on room air. -Symptoms resolved with IV dexamethasone and remdesivir, continue steroid burst on discharge with albuterol as needed for SOB/wheezing -Did not require oxygen on discharge -Applauded smoking cessation, likely has element of COPD and would benefit from PCP/PFTs -Recommended isolation per CDC guidelines (2) Hypothyroidism: Chronic. Stable dose of Synthroid -Continue Synthroid 50mcg po daily (3) GERD (gastroesophageal reflux disease): Chronic. Stable -Protonix 40mg po daily while admitted Plan Discharged to home without elevated needs Discharge Exam Constitutional WD/WN, vitals as above Respiratory normal respiratory effort, lungs clear to auscultation Cardiovascular RRR, no murmur, no edema Psychiatric A+Ox3, euthymic affect Updated Medication List Medication Instructions Recorded Confirmed Type levothyroxine 50 mcg tablet 50 mcg PO DAILYBB 04/05/23 06/29/23 History omeprazole 20 mg capsule,delayed 20 mg PO DAILYBB 04/05/23 06/29/23 History release albuterol sulfate 90 mcg/actuation 2 puff inhalation Q4H PRN 07/01/23 Rx aerosol inhaler (Ventolin HFA) shortness of breath or wheezing #6.7 grams prednisone 20 mg tablet 20 mg PO DAILY 3 days #3 tabs 07/01/23 Rx promethazine 12.5 mg tablet 12.5 mg PO TID PRN nausea, allergy 07/01/23 Rx symptoms #10 tabs Hospital Stay Data Consultations 06/29/23 23:51 ED Decision to Admit Stat Diagnostic Imagining Performed 06/29/23 21:51 CT abd pelvis IV con only Stat Discharge Instructions Given to Patient (Per Discharging Provider) You were admitted to the hospital for evaluation and management of trouble breathing and illness, and found to be COVID-19 positive. Fortunately, with steroids and time your symptoms improved, and you did not require oxygen on discharge home. I have sent in a steroid burst for you, prednisone 20mg to be taken for the next 3 days starting tomorrow as you already had steroid IV this morning. I also sent in an albuterol inhaler that you can use as needed for shortness of breath or wheezing. You should mask and wash hands and maintain adequate distance from others when possible, especially those who have chronic medical problems or are immunocompromised. I recommend that you follow up with your family doctor for formal pulmonary function testing, because if you have a COPD diagnosis and do not know it there are special inhalers that can help your lungs. Please call your family doctor for an appointment in the next 2 weeks to follow up on your hospitalization. If you have any questions you can contact their office, otherwise if urgently concerned please seek urgent medical attention. Total Time Total Time Spent Total Time Spent (In Minutes): 30 min Coding Level of Care Code 53119 IN/OBS DISCH 30 MIN/LESS Diagnoses COVID-19 U07.1 Hypothyroidism E03.9 GERD (gastroesophageal reflux disease) K21.9
[2023-07-01] MEDS: dexAMETHasone 6 MG in SYRINGE 0 ML IV SCH (09:13)
[2023-07-01] MEDS: PANTOprazole 40 MG TAB PO SCH (09:13)
[2023-07-01] MEDS: ENOXAPARIN INJ 40 MG/0.4 ML SYR SQ SCH (09:19)
[2023-07-01] MEDS ORDERED: REMDESIVIR 100 MG in SODIUM CHLORIDE 0.9% 230 ML IV SCH (12:00)
== END 2023-07-01 11:48 | disposition home or self-care (01) | DRG 178 ==
LOC: ED 21:24 → 3W 06-30 00:18 → SUATTDRO 06-30 00:18 → INTOOBSV 06-30 00:18 → 3W 06-30 01:35